=== PATIENT | male | born 1950 | race Hispanic/Latino ===

== ENCOUNTER → 2017-10-13 | Outpatient (CLI) | payer OTHER ==
[~2017-10-13] MED LIST: ASPI-1005 PO; CARV12.511 PO; CLOP75TA32 PO; EXEN10PE3 SQ; GLIP10TA9 PO; INSLAN SQ; ISOS60TA4 PO; LOSA25TA21 PO; PANT40TA25 PO; ROSU40 PO
== END | disposition home or self-care (01) ==
LOC: RAH 10:53
PROVIDERS: ATTEND Family Medicine
DX: N50.812 Left testicular pain (principal)
CPT/HCPCS: 76870

== ENCOUNTER → 2017-11-04 | Outpatient (CLI) | payer OTHER | END | disposition home or self-care (01) | LOC: RAH 12:26 | PROVIDERS: ATTEND Family Medicine | DX: K40.90 Unilateral inguinal hernia, without obstruction or gangrene, not specified as recurrent (principal) | CPT/HCPCS: 76882 ==

== ENCOUNTER 2018-09-05 06:12 | Observation (INO) | payer OTHER ==
[~2018-09-05] VITALS: Ht 167.6 cm; Wt 112.4 kg
[~2018-09-05 06:12] MED LIST changes: -LOSA25TA21 PO; +LOSA25TA41 PO
[2018-09-05] MEDS ORDERED: ASPIRIN 81MG TAB.CHEW ONE (06:20)
[2018-09-05] MEDS ORDERED: SODIUM CHLORIDE 0.9% 1000ML 1,000 ML IV ONE ×2 (06:45→11:43)
[2018-09-05] MEDS ORDERED: ONDANSETRON HCL 4 MG/2 ML VIAL ONE (06:45)
[2018-09-05] MEDS ORDERED: NITROGLYCERIN 0.4 MG SL TAB SL ONE (06:45)
[2018-09-05] MEDS ORDERED: MORPHINE SULFATE 4 MG/1ML SYG ONE (06:46)
[2018-09-05 06:47] LABS: BASOPHILS % (AUTO) 0.9 % (0.0-5.0); EOSINOPHILS % (AUTO) 1.2 % (0.0-8.0); LYMPHOCYTES % (AUTO) 23.7 % (21.0-51.0); MEAN CORPUSCULAR HEMOGLOBIN 30.8 pg (27.0-33.0); MEAN CORPUSCULAR HGB CONC 34.1 g/dL (32.0-36.0); MEAN CORPUSCULAR VOLUME 90.2 fL (79-99); MONOCYTES % (AUTO) 7.1 % (3.0-13.0); NEUTROPHILS % (AUTO) 67.1 % (40.0-77.0); PLATELET COUNT (AUTO) 210 K/uL (130-400); RED BLOOD CELL COUNT(AUTO) 4.33 MIL/uL (4.50-6.20); RED CELL DISTRIBUTION WIDTH 13.6 % (11.0-15.5); WHITE BLOOD COUNT (AUTO) 8.1 K/uL (4.8-10.8)
[2018-09-05 06:56] LABS: CREATININE 1.6 mg/dL (0.5-1.5); POTASSIUM 3.8 mmol/L (3.5-5.1)
[2018-09-05 07:09] LABS: ALBUMIN 3.7 g/dL (3.5-5.0); BILIRUBIN,TOTAL 0.7 mg/dL (0.2-1.0); TOTAL PROTEIN, SERUM 7.6 g/dL (6.0-8.3)
[2018-09-05 07:30] LABS: INR 0.94 (0.85-1.15); PROTHROMBIN TIME 9.9 SEC (9.6-11.6)
[2018-09-05] MEDS ORDERED: INSULIN HUMULIN R 100 UNIT/ML 3ML ONE ×3 (07:55→17:28)
[2018-09-05] MEDS ORDERED: ACETAMINOPHEN 325 MG TAB PO PRN (08:45)
[2018-09-05] MEDS ORDERED: POTASSIUM CHLORIDE 20 MEQ ERTAB PO PRN (08:45)
[2018-09-05] MEDS ORDERED: ONDANSETRON HCL 4 MG/2 ML VIAL IVP PRN (08:45)
[2018-09-05] MEDS ORDERED: LIDOCAINE HCL-MPF 1% 2ML VIAL IJ PRN (08:45)
[2018-09-05] MEDS ORDERED: HYDROCODONE/ACETAMINOPHEN 5/325 MG TAB PO PRN (08:45)
[2018-09-05] MEDS ORDERED: POTASSIUM CHLORIDE 20MEQ/100ML 100 ML IV PRN (08:45)
[2018-09-05] MEDS ORDERED: LABETALOL 20 MG/4 ML DISP.SYRIN IV PRN (08:45)
[2018-09-05] MEDS ORDERED: MORPHINE SULFATE 2 MG/ML 1ML SYG IVP PRN (08:45)
[2018-09-05] MEDS ORDERED: POTASSIUM CHLORIDE 10% ELIXIR 20 MEQ/15 ML UDCUP PO PRN (08:45)
[2018-09-05] MEDS ORDERED: ATORVASTATIN CALCIUM 40 MG TABLET PO SCH (09:00)
[2018-09-05] MEDS: ENOXAPARIN SODIUM 40 MG/0.4 ML SYRINGE SQ SCH (09:00)
[2018-09-05] MEDS ORDERED: ENOXAPARIN SODIUM 30 MG/0.3 ML SQ ONE (11:44)
[2018-09-05] MEDS ORDERED: ENOXAPARIN SODIUM 40 MG/0.4 ML SYRINGE SQ ONE (11:51)
[2018-09-05 13:25] LABS: CREATINE KINASE, TOTAL 52 U/L (21-232); MYOGLOBIN 58 ng/mL (10-92); TROPONIN I < 0.04 ng/mL (0.00-0.06)
[2018-09-05 20:10] VITALS: BP 158/80
--- NOTE | 2018-09-05 20:10 | NUR ---
ADMISSION NOTE: Received pt per stretcher. Alert and very responsive. Assessment done. VS checked and recorded. Oriented to room and use of call light. Policies and procedures explained. Verbalized understanding. Attached to Telemetry as ordered with SR. Plan of care initiated. Orders carried out. Observed and watched out for any unusualities. Cared for and needs provided. Distress / discomfort not noted.
[2018-09-05 21:14] LABS: CREATINE KINASE, TOTAL 49 U/L (21-232); MYOGLOBIN 60 ng/mL (10-92); TROPONIN I < 0.04 ng/mL (0.00-0.06)
[2018-09-05] MEDS ORDERED: GLUCAGON 1MG KIT 1 MG ML IM PRN (21:45)
[2018-09-05] MEDS ORDERED: DEXTROSE 50%-WATER 50 ML DISP.SYRIN IV PRN (21:45)
[2018-09-05] MEDS: SODIUM CHLORIDE 0.9% 1000ML 1,000 ML IV SCH (21:50)
[2018-09-05] MEDS: ISOSORBIDE MONO 60 MG TAB.SR PO SCH (22:37)
[2018-09-05] MEDS: ATORVASTATIN CALCIUM 40 MG TABLET PO SCH (22:38)
[2018-09-05] MEDS ORDERED: PIOG30TA70 PO (23:34)
[2018-09-05] MEDS ORDERED: GLIP10TA9 PO (23:34)
[2018-09-05] MEDS ORDERED: RANO500T2 PO (23:34)
[2018-09-05] MEDS ORDERED: CANA300T PO (23:34)
[2018-09-05] MEDS ORDERED: INSU300I3 SQ (23:41)
[2018-09-06 00:37] VITALS: BP 127/72
[2018-09-06 04:44] VITALS: BP 127/73
[2018-09-06 05:30] LABS: HEMATOCRIT 38.3 % (42-54); MEAN CORPUSCULAR HEMOGLOBIN 30.8 pg (27.0-33.0); MEAN CORPUSCULAR VOLUME 90.5 fL (79-99); NUCLEATED RED BLOOD CELLS 0.1 % (0.0-0.19); PLATELET COUNT (AUTO) 180 K/uL (130-400); RED BLOOD CELL COUNT(AUTO) 4.23 MIL/uL (4.50-6.20); RED CELL DISTRIBUTION WIDTH 13.6 % (11.0-15.5); WHITE BLOOD COUNT (AUTO) 7.7 K/uL (4.8-10.8)
[2018-09-06 05:40] LABS: CREATININE 1.6 mg/dL (0.5-1.5); POTASSIUM 3.5 mmol/L (3.5-5.1)
[2018-09-06] MEDS: INSULIN R PO SS1 SQ SCH ×4 (06:15→21:48)
[2018-09-06 07:00] VITALS: BP 147/88
--- NOTE | 2018-09-06 08:00 | NUR ---
AM SHIFT ASSESSMENT. DENIES ANY CHEST PAIN AT THIS TIME.
[2018-09-06] MEDS ORDERED: INSULIN GLARGINE 100 UNITS/ML 10 ML VIAL SQ SCH (09:00)
--- NOTE | 2018-09-06 09:00 | NUR ---
REPAIR ELECT[employer]IC [employer]OR ASSEMBLER CONSULT IN PLACE AND HAS BEEN CALLED. DR. VIDALES ON TODAY.
[2018-09-06] MEDS: CLOPIDOGREL BISULFATE 75 MG TAB PO SCH (10:10)
[2018-09-06] MEDS: ASPIRIN 81MG TAB.CHEW PO SCH (10:10)
[2018-09-06] MEDS: LOSARTAN 50 MG TABLET PO SCH (10:10)
[2018-09-06] MEDS: METOPROLOL TARTRATE 25 MG TAB PO SCH ×2 (10:10→21:50)
[2018-09-06] MEDS: ENOXAPARIN SODIUM 40 MG/0.4 ML SYRINGE SQ SCH (10:11)
[2018-09-06 11:00] VITALS: BP 130/75
[2018-09-06] MEDS: SODIUM CHLORIDE 0.9% 1000ML 1,000 ML IV SCH (11:10)
--- NOTE | 2018-09-06 12:48 | NUR ---
C/O OF CHEST PAIN, SR ON MONITOR. STATES A 5 ON SCALE OF 1 TO 10. MEDICATED AND 5 MINUTES LATER FELT BETTER. PLACED ON 2 LITERS OF O2. SLATE PICKER WITH BENCHMARK HAPPENED TO BE ROUNDING AND IN TO SEE PT. WILL ENTER ORDERS.
--- NOTE | 2018-09-06 14:00 | NUR ---
RD Notification Patient tolerating Heart Healthy, 75gm CC Diet with no report of GI distress and PO intake at 100%. Patient reports some nausea at breakfast time but has resolved. Patient reports some feelings of constipation. Patient LBM 09/05/18. Patient monitored labs: BUN 24, Cr 1.6, GFR 46, Glu 184. RD provided Diabetes and Nutrition Diet Education. RD to continue to monitor. Please notify RD as nutritional concerns arise. Thank you. Addendum: 09/06/18 at [address] RD Amended: Links added.
--- NOTE | 2018-09-06 14:07 | NUR ---
Diet Education RD offered and provided Diabetes and nutrition diet education for patient. Patient with no questions at time of teaching, however was agreeable and expressed desire for education. RD reviewed reference materials and handouts and patient verbalized understanding. Patient with no questions at this time. RD to follow-up. Please notify RD as nutritional concerns arise. Thank you. Addendum: 09/06/18 at [address] Amended: Links added.
[2018-09-06 16:00] VITALS: BP 132/75
--- NOTE | 2018-09-06 18:00 | NUR ---
NO FURTHER C/O OF CHEST DISCOMFORT, HAS BEEN SCHEDULED FOR A D ECHO AND STRESS TEST IN AM, WILL BE PLACED ON NPO STATUS AT [place] AND UNDERSTANDS.
[2018-09-06 20:00] VITALS: BP 126/64
[2018-09-06] MEDS: ATORVASTATIN CALCIUM 40 MG TABLET PO SCH (21:51)
[2018-09-06] MEDS: ISOSORBIDE MONO 60 MG TAB.SR PO SCH (21:51)
[2018-09-07] VITALS: BP 130/76
[2018-09-07 04:00] VITALS: BP 116/68
[2018-09-07] MEDS: SODIUM CHLORIDE 0.9% 1000ML 1,000 ML IV SCH ×2 (05:04→13:50)
[2018-09-07 06:03] LABS: B-TYPE NATRIURETIC PEPTIDE 34 pg/mL (0-100)
[2018-09-07 06:07] LABS: ALBUMIN 3.4 g/dL (3.5-5.0); BILIRUBIN,TOTAL 0.9 mg/dL (0.2-1.0); CREATININE 1.6 mg/dL (0.5-1.5); MAGNESIUM 1.8 mg/dL (1.80-2.40); PHOSPHORUS 4.1 mg/dL (2.5-4.9); POTASSIUM 4.1 mmol/L (3.5-5.1); THYROID STIMULATING HORMONE 3.36 uIU/mL (0.36-3.74); TOTAL PROTEIN, SERUM 7.1 g/dL (6.0-8.3)
[2018-09-07 06:30] LABS: HEMOGLOBIN A1C 9.3 % (4.0-6.0)
[2018-09-07] MEDS: INSULIN R PO SS1 SQ SCH ×4 (06:32→21:55)
[2018-09-07 07:04] LABS: BASOPHILS % (AUTO) 0.7 % (0.0-5.0); EOSINOPHILS % (AUTO) 1.3 % (0.0-8.0); HEMATOCRIT 37.8 % (42-54); LYMPHOCYTES % (AUTO) 25.6 % (21.0-51.0); MEAN CORPUSCULAR HEMOGLOBIN 30.6 pg (27.0-33.0); MEAN CORPUSCULAR HGB CONC 33.7 g/dL (32.0-36.0); MEAN CORPUSCULAR VOLUME 90.6 fL (79-99); MONOCYTES % (AUTO) 7.9 % (3.0-13.0); NEUTROPHILS % (AUTO) 64.5 % (40.0-77.0); NUCLEATED RED BLOOD CELLS 0.1 % (0.0-0.19); PLATELET COUNT (AUTO) 188 K/uL (130-400); RED BLOOD CELL COUNT(AUTO) 4.17 MIL/uL (4.50-6.20); RED CELL DISTRIBUTION WIDTH 13.8 % (11.0-15.5); WHITE BLOOD COUNT (AUTO) 8.4 K/uL (4.8-10.8)
[2018-09-07 08:25] VITALS: BP 123/71
[2018-09-07] MEDS: INSULIN GLARGINE 100 UNITS/ML 10 ML VIAL SQ SCH (09:00)
[2018-09-07] MEDS: LOSARTAN 50 MG TABLET PO SCH (09:00)
[2018-09-07] MEDS: METOPROLOL TARTRATE 25 MG TAB PO SCH ×2 (09:00→21:51)
[2018-09-07] MEDS: ENOXAPARIN SODIUM 40 MG/0.4 ML SYRINGE SQ SCH (10:19)
[2018-09-07] MEDS ORDERED: REGADENOSON 0.4 MG/5 ML PF SYG IVP SCH (12:45)
[2018-09-07] MEDS: CLOPIDOGREL BISULFATE 75 MG TAB PO SCH (13:30)
[2018-09-07] MEDS: ASPIRIN 81MG TAB.CHEW PO SCH (13:30)
[2018-09-07 16:00] VITALS: BP 130/72
--- NOTE | 2018-09-07 17:00 | NUR ---
CONSTANTINE FIELDS VISITED W PT AND SOUSE; AAOX3, ENG SPKG, IND OF ADLS, CPAPA AT HOME, PT STATES WAS EXTREMEMLY SHORT OF BREATH DURING THE STRESS TEST- STILL WAITING ON ECHO TO BE DONE; WILL PORBABLY NOT GO HOME TONIGHT; DCP [facility], CM TO FOLLOW UP, STILL IN OBS STATUS Addendum: 09/08/18 at 0832 by ARSALAN BENTON RN CM Amended: Links added.
[2018-09-07 20:00] VITALS: BP 134/69
[2018-09-07] MEDS: ATORVASTATIN CALCIUM 40 MG TABLET PO SCH (21:51)
[2018-09-07] MEDS: ISOSORBIDE MONO 60 MG TAB.SR PO SCH (21:52)
[2018-09-07 23:00] VITALS: BP 124/61
[2018-09-08] MEDS: SODIUM CHLORIDE 0.9% 1000ML 1,000 ML IV SCH (02:36)
[2018-09-08 03:47] VITALS: BP 104/66
[2018-09-08] MEDS: INSULIN R PO SS1 SQ SCH ×2 (06:44→12:13)
[2018-09-08 08:26] VITALS: BP 124/78
[2018-09-08] MEDS: INSULIN GLARGINE 100 UNITS/ML 10 ML VIAL SQ SCH (10:07)
[2018-09-08] MEDS: LOSARTAN 50 MG TABLET PO SCH (10:13)
[2018-09-08] MEDS: METOPROLOL TARTRATE 25 MG TAB PO SCH (10:13)
[2018-09-08] MEDS: ENOXAPARIN SODIUM 40 MG/0.4 ML SYRINGE SQ SCH (10:13)
[2018-09-08] MEDS: CLOPIDOGREL BISULFATE 75 MG TAB PO SCH (10:13)
[2018-09-08] MEDS: ASPIRIN 81MG TAB.CHEW PO SCH (10:13)
[2018-09-08] MEDS ORDERED: EZET10 PO (10:32)
--- NOTE | 2018-09-08 11:05 | NUR ---
CM MET W PT AND SPOUSE, EXPECTING DISCHARGE TODAY, FAMILY UPSET THAT ECHO HAS NOT BEEN DONE, RELAYED CONCENRNS TO DR. MACE, PT IS WELL KNOWN TO .
[2018-09-08 11:57] VITALS: BP 146/88
== END 2018-09-08 12:30 | disposition home or self-care (01) ==
LOC: EDH 06:12 → EDHIP 07:36 → 3AH 20:04
PROVIDERS: ADMIT Internal Medicine Critical Care Medicine; ATTEND Internal Medicine Critical Care Medicine
DX: I25.110 Atherosclerotic heart disease of native coronary artery with unstable angina pectoris (principal); I12.9 Hypertensive chronic kidney disease with stage 1 through stage 4 chronic kidney disease, or unspecified chronic kidney disease; N18.3 Chronic kidney disease, stage 3 (moderate); E11.22 Type 2 diabetes mellitus with diabetic chronic kidney disease; E11.65 Type 2 diabetes mellitus with hyperglycemia; E66.01 Morbid (severe) obesity due to excess calories; E78.5 Hyperlipidemia, unspecified; M17.10 Unilateral primary osteoarthritis, unspecified knee; Z72.0 Tobacco use; Z79.82 Long term (current) use of aspirin; Z79.899 Other long term (current) drug therapy; Z95.1 Presence of aortocoronary bypass graft; Z95.5 Presence of coronary angioplasty implant and graft
CPT/HCPCS: 36415 ×3; 71045 ×2; 78452; 80048; 80053 ×2; 80061; 82550 ×3; 82948 ×13; 83036; 83735; 83874 ×3; 83880; 84100; 84443; 84480; 84484 ×3; 85025 ×2; 85027; 85610; 85730; 93005 ×2; 93017; 96372 ×6; 96374; 99284; A9500 ×2; G0378 ×77; J1650 ×4; J1815 ×8; J2270; J2405; J2785; J7030 ×2; 99291

== ENCOUNTER → 2019-05-10 | Outpatient (CLI) | payer OTHER ==
[~2019-05-10] MED LIST changes: +CANA300T PO; +EZET10TA13 PO; +FURO20TA4 PO; +HYDR-4457 PO; +IBUP-2071 PO; +INSU300I3 SQ; +NITR0.4T50 SL; +PIOG30TA70 PO; +RANO500T2 PO; +TAMS-1 PO
== END | disposition home or self-care (01) ==
LOC: RAH 12:23
PROVIDERS: ATTEND Ophthalmology
DX: H47.10 Unspecified papilledema (principal)
CPT/HCPCS: 70450; 70480

== ENCOUNTER → 2019-05-22 | Outpatient (CLI) | payer OTHER ==
[~2019-05-22] MED LIST changes: -FURO20TA4 PO; -HYDR-4457 PO; -IBUP-2071 PO; -NITR0.4T50 SL; -TAMS-1 PO
== END | disposition home or self-care (01) ==
LOC: OIH 11:15
PROVIDERS: ATTEND Family Medicine
DX: Z01.818 Encounter for other preprocedural examination (principal); M47.815 Spondylosis without myelopathy or radiculopathy, thoracolumbar region
CPT/HCPCS: 71046

== ENCOUNTER 2019-06-02 15:00 | Observation (INO) | payer OTHER ==
[~2019-06-02] VITALS: Ht 167.6 cm; Wt 112.6 kg
[~2019-06-02 15:00] MED LIST changes: -EXEN10PE3 SQ; -INSLAN SQ
[2019-06-02 16:25] LABS: APPEARANCE,URINE Clear (CLEAR); BILIRUBIN,URINE Negative (NEGATIVE); COLOR,URINE Yellow (YELLOW); GLUCOSE, URINE (UA) >=1000 mg/dL (NEGATIVE); KETONES,URINE Negative (NEGATIVE); LEUKOCYTE ESTERASE ,URINE Negative (NEGATIVE); NITRATE,URINE Negative (NEGATIVE); OCCULT BLOOD,URINE Negative (NEGATIVE); PROTEIN,URINE Negative (NEGATIVE); UROBILINOGEN,URINE 0.2 mg/dL (0.2-1.0)
[2019-06-02 16:37] LABS: CREATININE 2.1 mg/dL (0.5-1.5); POTASSIUM 4.4 mmol/L (3.5-5.1)
[2019-06-02 16:53] LABS: BACTERIA,URINE None Seen /HPF (None Seen); MUCUS,URINE Few LPF (None Seen); RBC,URINE 0-1 /HPF (0-1); WBC,URINE 0-1 /HPF (0-1)
[2019-06-02] MEDS ORDERED: FURO20TA4 PO (17:07)
[2019-06-02] MEDS ORDERED: TAMS-1 PO (17:08)
[2019-06-02] MEDS ORDERED: NITR0.4T50 SL (17:09)
[2019-06-02] MEDS ORDERED: IBUP-2071 PO (17:12)
[2019-06-02 17:15] VITALS: BP 126/62
--- NOTE | 2019-06-02 19:30 | NUR ---
NURSING: REPORTED ABNORMAL BUN AND CREATININE LABS RESULTS TO DR. ESTEBAN, NO NEW ORDERS OK TO PROCEED.
[2019-06-05] VITALS (25 sets, daily range): BP systolic 110–155; BP diastolic 60–106
[2019-06-05] MEDS ORDERED: SODIUM CHLORIDE 0.9% 1000ML 1,000 ML IV ONE (11:31)
[2019-06-05] MEDS: CEFAZOLIN SODIUM 1 GM VIAL ONE ×2 (12:26→14:30)
[2019-06-05] MEDS ORDERED: SUCCINYLCHOLINE 200MG/10ML SYR ONE (12:34)
[2019-06-05] MEDS ORDERED: DEXAMETHASONE SOD PHOSPHATE 10MG/ML 1ML VIAL ONE (12:34)
[2019-06-05] MEDS ORDERED: LIDOCAINE PF 2% 5ML ABBOJECT ONE (12:34)
[2019-06-05] MEDS ORDERED: GLYCOPYRROLATE 1 MG/5 ML SYRINGE ONE (12:36)
[2019-06-05] MEDS ORDERED: MIDAZOLAM HCL 1 MG/ML 2ML VIAL ONE (12:36)
[2019-06-05] MEDS ORDERED: PROPOFOL 10 MG/ML 20ML VIAL IV ONE (12:37)
[2019-06-05] MEDS ORDERED: NEOSTIGMINE 5MG/5ML SYR IV ONE (12:37)
[2019-06-05] MEDS ORDERED: ONDANSETRON HCL 4 MG/2 ML VIAL ONE (12:37)
[2019-06-05] MEDS ORDERED: ROCURONIUM 10MG/1ML SYR 10 MG/ML ML ONE (12:38)
[2019-06-05] MEDS ORDERED: FENTANYL CITRATE PF 50 MCG/1 ML 2ML VIAL ONE ×2 (12:38→16:38)
[2019-06-05] MEDS ORDERED: ROPIVACAINE 0.5% 5MG/ML 30ML IJ ONE (12:41)
[2019-06-05] MEDS ORDERED: ACETAMINOPHEN EXTRA STRENGTH 500 MG TABLET ONE (13:10)
[2019-06-05] MEDS ORDERED: METOCLOPRAMIDE 10 MG/2 ML VIAL ONE (13:10)
[2019-06-05] MEDS ORDERED: CEFAZOLIN SODIUM 1 GM VIAL ONE ×2 (14:08→21:00)
[2019-06-05] MEDS: TRANEXAMIC ACID 1000MG/10ML ONE ×2 (14:40→18:04)
[2019-06-05] MEDS: SODIUM CHLORIDE 0.9% 1000ML 1,000 ML IV SCH ×2 (17:16→17:50)
[2019-06-05] MEDS ORDERED: ONDANSETRON HCL 4 MG/2 ML VIAL IVP PRN (17:30)
[2019-06-05] MEDS ORDERED: POTASSIUM CHLORIDE 10% ELIXIR 20 MEQ/15 ML UDCUP PO PRN (17:30)
[2019-06-05] MEDS: ACETAMINOPHEN EXTRA STRENGTH 500 MG TABLET PO SCH (17:30)
[2019-06-05] MEDS ORDERED: TRAMADOL HCL 50 MG TABLET PO PRN (17:30)
[2019-06-05] MEDS ORDERED: POTASSIUM CHLORIDE 20 MEQ ERTAB PO PRN (17:30)
[2019-06-05] MEDS ORDERED: CALCIUM CARBONATE 500 MG TABLET PO PRN (17:30)
[2019-06-05] MEDS ORDERED: DiphenhydrAMINE HCL 50 MG/ML VIAL IVP PRN (17:30)
[2019-06-05] MEDS ORDERED: LIDOCAINE HCL-MPF 1% 2ML VIAL IV PRN (17:30)
[2019-06-05] MEDS ORDERED: POTASSIUM CHLORIDE 20MEQ/100ML 100 ML IV PRN (17:30)
[2019-06-05] MEDS ORDERED: TEMAZEPAM 15 MG CAPSULE PO PRN (17:30)
[2019-06-05] MEDS ORDERED: FERROUS FUMARATE 324 MG TABLET PO PRN (17:30)
[2019-06-05] MEDS ORDERED: MEPERIDINE-PF 25 MG/ML SYG ONE (17:56)
[2019-06-05] MEDS ORDERED: HYDROMORPHONE 1 MG/1 ML AMP ONE (18:06)
[2019-06-05] MEDS ORDERED: NITROGLYCERIN 0.4 MG SL TAB SL SCH (19:00)
[2019-06-05] MEDS: CELECOXIB 200 MG CAP PO SCH (19:54)
[2019-06-05] MEDS: ISOSORBIDE MONO 60 MG TAB.SR PO SCH (19:54)
[2019-06-05] MEDS: ASPIRIN 81MG TAB.CHEW PO SCH (19:54)
[2019-06-05] MEDS: PREGABALIN 25 MG CAP PO SCH (19:54)
[2019-06-05] MEDS: RANOLAZINE 500 MG TAB.SR.12H PO SCH (19:55)
[2019-06-05] MEDS: CARVEDILOL 12.5 MG TABLET PO SCH (19:55)
[2019-06-05] MEDS: EZETIMIBE 10 MG TAB PO SCH (19:56)
[2019-06-05] MEDS: INSULIN HUMULIN R 100 UNIT/ML 3ML SQ SCH (21:00)
[2019-06-05] MEDS: CEFAZOLIN SODIUM 1 GM VIAL IVP SCH (22:59)
[2019-06-06] MEDS: ACETAMINOPHEN EXTRA STRENGTH 500 MG TABLET PO SCH ×3 (01:56→17:45)
[2019-06-06 04:01] VITALS: BP 122/58
[2019-06-06 04:32] LABS: MEAN CORPUSCULAR HEMOGLOBIN 31.4 pg (27.0-33.0); MEAN CORPUSCULAR HGB CONC 34.5 g/dL (32.0-36.0); MEAN CORPUSCULAR VOLUME 90.8 fL (79-99); PLATELET COUNT (AUTO) 169 K/uL (130-400); RED BLOOD CELL COUNT(AUTO) 3.63 MIL/uL (4.50-6.20); RED CELL DISTRIBUTION WIDTH 13.3 % (11.0-15.5); WHITE BLOOD COUNT (AUTO) 9.5 K/uL (4.8-10.8)
[2019-06-06 04:43] LABS: CREATININE 1.8 mg/dL (0.5-1.5); POTASSIUM 4.3 mmol/L (3.5-5.1)
--- NOTE | 2019-06-06 04:45 | NUR ---
PT DANGLED AT BEDSIDE.
[2019-06-06] MEDS: CEFAZOLIN SODIUM 1 GM VIAL IVP SCH (06:19)
[2019-06-06] MEDS: INSULIN HUMULIN R 100 UNIT/ML 3ML SQ SCH ×4 (06:20→21:00)
[2019-06-06] MEDS: INSULIN GLARGINE HUM REC ANLOG SQ SCH (07:30)
[2019-06-06 07:49] VITALS: BP 132/58
[2019-06-06] MEDS: OXYCODONE HCL 5 MG TAB PO PRN ×3 (08:14→22:25)
[2019-06-06] MEDS: HOME MEDICATION 1 EACH PO SCH (09:00)
[2019-06-06] MEDS: CARVEDILOL 12.5 MG TABLET PO SCH ×2 (09:00→20:24)
[2019-06-06] MEDS: ASPIRIN 81MG TAB.CHEW PO SCH ×2 (09:07→20:27)
[2019-06-06] MEDS: CLOPIDOGREL BISULFATE 75 MG TAB PO SCH (09:08)
[2019-06-06] MEDS: PANTOPRAZOLE SODIUM 40 MG TABLET.DR PO SCH (09:08)
[2019-06-06] MEDS: PREGABALIN 25 MG CAP PO SCH ×2 (09:09→20:23)
[2019-06-06] MEDS: TAMSULOSIN HCL 0.4 MG CAP.ER.24H PO SCH (09:09)
[2019-06-06] MEDS: CELECOXIB 200 MG CAP PO SCH ×2 (09:09→20:23)
[2019-06-06] MEDS: PIOGLITAZONE HCL 30 MG TAB PO SCH (09:09)
[2019-06-06] MEDS: FUROSEMIDE 20 MG TABLET PO SCH (09:10)
[2019-06-06] MEDS: GLIPIZIDE 5 MG TABLET PO SCH (09:10)
[2019-06-06] MEDS: RANOLAZINE 500 MG TAB.SR.12H PO SCH ×2 (09:10→20:23)
[2019-06-06] MEDS: POLYETHYLENE GLYCOL 3350 17 GM POWD.PACK PO SCH (09:12)
--- NOTE | 2019-06-06 09:41 | NUR ---
0949 had pt sign IM Letter.Faxed to [phone] and placed in chart under consent tab.
--- NOTE | 2019-06-06 09:48 | NUR ---
correction to previous note; had pt sigN [place] Letter.
--- NOTE | 2019-06-06 10:20 | NUR ---
DCP CM met with pt discussed dc plans. Pt is independent prior to surgery, lives at home w/spouse. Pt has a cane, and cpap. Denies any other equipments/services. Agreeable for short term placement rehab, JAMMIE signed for [facility]. Spouse able to assist with transportation and needs as necessary. DC plan to SNF. CM to cont to follow up. CM faxed order, clinicals, PT, and PASRR to [facility], confirmation received. Spoke to Mamta will come eval pt and sent req auth to insurance today, aware dcp today/once approved. Pt pending ins auth and acceptance. Primary nurse aware. CM to cont to follow up. Addendum: 06/06/19 at 1022 by GRAHAM MURPHY LVN CM Amended: Links added.
--- NOTE | 2019-06-06 10:47 | NUR ---
CM Note: [facility] pending ins auth CM spoke to Mamta Andujar, received order, clinicals, PT, and PASRR, already forwarded to ins this morning. Pt pending ins auth at this time. Primary nurse aware. CM to cont to follow up.
[2019-06-06 11:31] VITALS: BP 109/55
[2019-06-06] MEDS: SODIUM CHLORIDE 0.9% 1000ML 1,000 ML IV SCH (12:02)
--- NOTE | 2019-06-06 15:52 | NUR ---
CM Note: [facility] pending ins auth CM spoke to Mamta w/[facility], pt still pending ins auth at this time. CM made contact w/Antonio Neo, aware dcp for today. Pt still pending ins auth for [facility], pending response. Primary nurse aware. CM to cont to follow up.
[2019-06-06 16:00] VITALS: BP 133/65
[2019-06-06 19:39] VITALS: BP 111/52
[2019-06-06] MEDS: ISOSORBIDE MONO 60 MG TAB.SR PO SCH (20:23)
[2019-06-06] MEDS: EZETIMIBE 10 MG TAB PO SCH (20:23)
[2019-06-06 23:36] VITALS: BP 113/58
[2019-06-07] MEDS: ACETAMINOPHEN EXTRA STRENGTH 500 MG TABLET PO SCH ×2 (01:30→09:47)
[2019-06-07] MEDS: OXYCODONE HCL 5 MG TAB PO PRN ×4 (02:40→16:00)
[2019-06-07 03:30] VITALS: BP 102/50
[2019-06-07] MEDS: INSULIN HUMULIN R 100 UNIT/ML 3ML SQ SCH ×4 (06:24→20:01)
[2019-06-07] MEDS: INSULIN GLARGINE HUM REC ANLOG SQ SCH (06:24)
[2019-06-07 08:09] VITALS: BP 135/69
[2019-06-07] MEDS: HOME MEDICATION 1 EACH PO SCH (09:00)
[2019-06-07] MEDS: CELECOXIB 200 MG CAP PO SCH ×2 (09:32→19:54)
[2019-06-07] MEDS: TAMSULOSIN HCL 0.4 MG CAP.ER.24H PO SCH (09:33)
[2019-06-07] MEDS: CARVEDILOL 12.5 MG TABLET PO SCH ×2 (09:33→19:55)
[2019-06-07] MEDS: FUROSEMIDE 20 MG TABLET PO SCH (09:33)
[2019-06-07] MEDS: PANTOPRAZOLE SODIUM 40 MG TABLET.DR PO SCH (09:34)
[2019-06-07] MEDS: CLOPIDOGREL BISULFATE 75 MG TAB PO SCH (09:34)
[2019-06-07] MEDS: GLIPIZIDE 5 MG TABLET PO SCH (09:34)
[2019-06-07] MEDS: PIOGLITAZONE HCL 30 MG TAB PO SCH (09:35)
[2019-06-07] MEDS: POLYETHYLENE GLYCOL 3350 17 GM POWD.PACK PO SCH (09:35)
[2019-06-07] MEDS: RANOLAZINE 500 MG TAB.SR.12H PO SCH ×2 (09:35→19:54)
[2019-06-07] MEDS: PREGABALIN 25 MG CAP PO SCH ×2 (09:35→19:55)
[2019-06-07 11:29] VITALS: BP 131/65
[2019-06-07 11:49] VITALS: BP 131/65
[2019-06-07] MEDS: ASPIRIN 81MG TAB.CHEW PO SCH ×2 (12:14→19:55)
--- NOTE | 2019-06-07 14:31 | NUR ---
CM Note: [facility] pending ins auth CM spoke to Mamta gutierrez/[facility], pt still pending ins auth. Kusum and Keturah w/Antonio aware dcp for today, pending ins auth, currently still working on auth, CM Director Diya sousa. Primary nurse aware. CM to cont to follow up.
--- NOTE | 2019-06-07 15:45 | NUR ---
CM Note: [facility] ins auth CM spoke to Mamta Andujar, pt has ins auth, safe to transfer via [address] van. Primary nurse aware. CM to cont to follow up.
[2019-06-07 15:52] VITALS: BP 118/64
[2019-06-07] MEDS ORDERED: HYDR-4457 PO (17:25)
[2019-06-07] MEDS ORDERED: ASPI-1005 PO (17:25)
--- NOTE | 2019-06-07 19:30 | NUR ---
report has been called and faxed to [facility]cee [facility]; Patient and stated understanding of all discharge instructions instructions for after care for a knee replacement including, wound care, follow up appointment, aspirin therapy, wbat as tolerated activity using a standard walker, signs and symptoms of infection and or other concerns to report to md. iv access removed, kaycee to sweet pickle maker with there van service.
[2019-06-07] MEDS: EZETIMIBE 10 MG TAB PO SCH (19:54)
[2019-06-07] MEDS: ISOSORBIDE MONO 60 MG TAB.SR PO SCH (19:54)
[2019-06-07 20:00] VITALS: BP 121/58
--- NOTE | 2019-06-07 20:40 | NUR ---
DISCHARGE DISCHARGED TO [facility] VIA W/C WITH [facility]OURNEYMAN MOLDER AND AT BEDSIDE
[2019-06-08] MEDS ORDERED: BISACODYL 10 MG SUPP.RECT RC PRN (17:30)
== END 2019-06-07 20:40 ==
LOC: EDSTATUS 15:00 → DAHIP 06-05 09:12 → 4AH 06-05 18:26
PROVIDERS: ADMIT Orthopaedic Surgery; ATTEND Orthopaedic Surgery
DX: M17.12 Unilateral primary osteoarthritis, left knee (principal); I25.10 Atherosclerotic heart disease of native coronary artery without angina pectoris; E11.9 Type 2 diabetes mellitus without complications; I10 Essential (primary) hypertension; F32.9 Major depressive disorder, single episode, unspecified; E78.5 Hyperlipidemia, unspecified; E66.9 Obesity, unspecified; Z87.891 Personal history of nicotine dependence; Z95.1 Presence of aortocoronary bypass graft; Z79.82 Long term (current) use of aspirin; Z79.899 Other long term (current) drug therapy; Z68.41 Body mass index [BMI] 40.0-44.9, adult
CPT/HCPCS: 27447; 36415 ×2; 80048 ×2; 81001; 82948 ×11; 85027; 96372 ×2; 96374; 96376; 97039; 97116 ×3; 97161; 97530 ×4; A4215; A4221; A4222; A4223; A4600; A4649 ×5; A4663; A4930 ×3; A5120; A9272; C1763; C1776; G0168; G0378 ×54; G8979; G8980; G8981; G8982; G8983; J0330; J0690 ×4; J1100; J1170; J1815 ×6; J2001; J2175; J2250; J2405; J2704; J2710; J2765; J2795; J3010 ×2; J3490 ×2; J7030; J7120

== ENCOUNTER 2019-09-02 21:36 | Emergency (ER) | payer OTHER ==
[~2019-09-02 21:36] MED LIST changes: +FURO20TA4 PO; +HYDR-4457 PO; +NITR0.4T50 SL; +TAMS-1 PO
[2019-09-02] MEDS ORDERED: IBUPROFEN 400 MG TABLET ONE (22:27)
[2019-09-02] MEDS ORDERED: FAMOTIDINE 20MG TAB 20 MG TAB ONE (22:27)
[2019-09-02 22:31] LABS: BASOPHILS % (AUTO) 0.3 % (0.0-5.0); EOSINOPHILS % (AUTO) 0.4 % (0.0-8.0); HEMATOCRIT 36.5 % (42-54); LYMPHOCYTES % (AUTO) 4.4 % (21.0-51.0); MEAN CORPUSCULAR HEMOGLOBIN 28.9 pg (27.0-33.0); MEAN CORPUSCULAR HGB CONC 32.9 g/dL (32.0-36.0); MONOCYTES % (AUTO) 6.4 % (3.0-13.0); NEUTROPHILS % (AUTO) 88.2 % (40.0-77.0); PLATELET COUNT (AUTO) 209 K/uL (130-400); RED BLOOD CELL COUNT(AUTO) 4.15 MIL/uL (4.50-6.20); RED CELL DISTRIBUTION WIDTH 13.2 % (11.0-15.5); WHITE BLOOD COUNT (AUTO) 13.9 K/uL (4.8-10.8)
[2019-09-02 22:43] LABS: PARTIAL THROMBOPLASTIN TIME 25.2 SEC (26.3-35.5); PROTHROMBIN TIME 10.5 SEC (9.6-11.6)
[2019-09-02 22:46] LABS: CARBON DIOXIDE 25 mmol/L (21-32); CHLORIDE 101 mmol/L (101-111); CREATININE 1.8 mg/dL (0.5-1.5); GLOMERULAR FILTR. RATE CALC 40 mL/min (>60); GLUCOSE,RANDOM 350 mg/dL (70-105); POTASSIUM 3.8 mmol/L (3.5-5.1); SODIUM SERUM 136 mmol/L (136-145); UREA NITROGEN, BLOOD 28 mg/dL (7-18)
[2019-09-02 22:56] LABS: ALANINE AMINOTRANSFERASE 18 U/L (12-78); ALBUMIN 3.6 g/dL (3.5-5.0); ASPARTATE AMINOTRANSFERASE 14 U/L (10-37); BILIRUBIN,TOTAL 0.8 mg/dL (0.2-1.0); CREATINE KINASE, TOTAL 108 U/L (21-232); MYOGLOBIN 118 ng/mL (10-92); TOTAL PROTEIN, SERUM 7.6 g/dL (6.0-8.3); TROPONIN I < 0.04 ng/mL (0.00-0.06)
[2019-09-02 23:32] LABS: APPEARANCE,URINE Clear (CLEAR); BILIRUBIN,URINE Negative (NEGATIVE); COLOR,URINE Yellow (YELLOW); GLUCOSE, URINE (UA) >=1000 mg/dL (NEGATIVE); KETONES,URINE Negative (NEGATIVE); LEUKOCYTE ESTERASE ,URINE Negative (NEGATIVE); NITRATE,URINE Negative (NEGATIVE); OCCULT BLOOD,URINE Negative (NEGATIVE); PROTEIN,URINE Negative (NEGATIVE); UROBILINOGEN,URINE 0.2 mg/dL (0.2-1.0)
[2019-09-02 23:47] LABS: BACTERIA,URINE Few /HPF (None Seen); RBC,URINE 0-1 /HPF (0-1); WBC,URINE 0-1 /HPF (0-1)
[2019-09-03] MEDS ORDERED: IBUP-2077 PO (20:08)
[2019-09-03] MEDS ORDERED: TYL3B PO (20:08)
== END 2019-09-03 00:01 | disposition home or self-care (01) ==
LOC: EDH 21:36
DX: E11.65 Type 2 diabetes mellitus with hyperglycemia (principal); R50.9 Fever, unspecified; I25.2 Old myocardial infarction; I10 Essential (primary) hypertension; I25.10 Atherosclerotic heart disease of native coronary artery without angina pectoris; Z87.891 Personal history of nicotine dependence
CPT/HCPCS: 36415; 71045; 80053; 81001; 82550; 83605; 83874; 83880; 84145; 84484; 85025; 85610; 85730; 87040; 87077; 87088; 87186; 87804; 93005

== ENCOUNTER → 2019-09-21 | Outpatient (CLI) | payer OTHER ==
[~2019-09-21] MED LIST changes: -HYDR-4457 PO; +IBUP-2077 PO; +TYL3B PO
== END | disposition home or self-care (01) ==
LOC: OIH 15:08
PROVIDERS: ATTEND Family Medicine
DX: M17.11 Unilateral primary osteoarthritis, right knee (principal)
CPT/HCPCS: 73562

== ENCOUNTER → 2019-10-19 | Outpatient (CLI) | payer OTHER ==
[~2019-10-19] MED LIST changes: +ASCO-477 PO; +OXYB10TA30 PO; -PANT40TA25 PO; +PANT40TA54 PO; +VIT1TABL66 PO
== END | disposition home or self-care (01) ==
LOC: SHCH 08:37
PROVIDERS: ATTEND Internal Medicine Cardiovascular Disease
DX: I87.2 Venous insufficiency (chronic) (peripheral) (principal); K21.9 Gastro-esophageal reflux disease without esophagitis
CPT/HCPCS: 93970

== ENCOUNTER 2019-10-21 11:38 | Emergency (ER) | payer OTHER ==
[~2019-10-21 11:38] MED LIST changes: -ASCO-477 PO; -OXYB10TA30 PO; +PANT40TA25 PO; -PANT40TA54 PO; -VIT1TABL66 PO
[2019-10-21 13:21] LABS: CREATININE 1.6 mg/dL (0.5-1.5); POTASSIUM 4.2 mmol/L (3.5-5.1)
[2019-10-21 13:25] LABS: ALBUMIN 3.5 g/dL (3.5-5.0); BILIRUBIN,TOTAL 0.7 mg/dL (0.2-1.0); TOTAL PROTEIN, SERUM 7.3 g/dL (6.0-8.3)
[2019-10-21 13:36] LABS: B-TYPE NATRIURETIC PEPTIDE 93 pg/mL (0-100)
[2019-10-21 13:39] LABS: BASOPHILS % (AUTO) 0.7 % (0.0-5.0); EOSINOPHILS % (AUTO) 1.9 % (0.0-8.0); HEMATOCRIT 37.7 % (42-54); LYMPHOCYTES % (AUTO) 21.3 % (21.0-51.0); MEAN CORPUSCULAR HEMOGLOBIN 29.2 pg (27.0-33.0); MEAN CORPUSCULAR HGB CONC 32.9 g/dL (32.0-36.0); MEAN CORPUSCULAR VOLUME 88.7 fL (79-99); MONOCYTES % (AUTO) 6.2 % (3.0-13.0); NEUTROPHILS % (AUTO) 69.6 % (40.0-77.0); PLATELET COUNT (AUTO) 223 K/uL (130-400); RED BLOOD CELL COUNT(AUTO) 4.25 MIL/uL (4.50-6.20); RED CELL DISTRIBUTION WIDTH 13.7 % (11.0-15.5); WHITE BLOOD COUNT (AUTO) 6.9 K/uL (4.8-10.8)
== END 2019-10-21 14:01 | disposition home or self-care (01) ==
LOC: EDH 11:38
DX: J20.9 Acute bronchitis, unspecified (principal); E11.9 Type 2 diabetes mellitus without complications; I10 Essential (primary) hypertension; I25.2 Old myocardial infarction; I25.10 Atherosclerotic heart disease of native coronary artery without angina pectoris; Z87.891 Personal history of nicotine dependence
CPT/HCPCS: 36415; 71045; 80053; 83880; 84484; 85025; 87804; 93005

== ENCOUNTER → 2019-11-29 | Outpatient (CLI) | payer OTHER | END | disposition home or self-care (01) | LOC: OIH 11:20 | PROVIDERS: ATTEND Family Medicine | DX: M19.011 Primary osteoarthritis, right shoulder (principal); M25.411 Effusion, right shoulder | CPT/HCPCS: 73030 ==

== ENCOUNTER 2019-12-10 12:06 | Emergency (ER) | payer OTHER ==
[2019-12-10] MEDS ORDERED: ORPHENADRINE CITRATE 30 MG/ML ML ONE (16:16)
[2019-12-10] MEDS ORDERED: DEXAMETHASONE SOD PHOSPHATE 10MG/ML 1ML VIAL ONE (16:16)
[2019-12-10] MEDS ORDERED: KETOROLAC TROMETHAMINE 15MG/ML ONE (16:16)
== END 2019-12-10 17:06 | disposition home or self-care (01) ==
LOC: EDH 12:06
DX: M54.5 Low back pain (principal); K80.20 Calculus of gallbladder without cholecystitis without obstruction; I10 Essential (primary) hypertension; I25.2 Old myocardial infarction; E11.9 Type 2 diabetes mellitus without complications; I25.10 Atherosclerotic heart disease of native coronary artery without angina pectoris; Z95.1 Presence of aortocoronary bypass graft; Z87.891 Personal history of nicotine dependence
CPT/HCPCS: 36415; 74176; 80053; 81003; 85025; 96374; 96375; 99284; J1100; J1885; J2360

== ENCOUNTER 2020-04-01 03:02 | Observation (INO) | payer OTHER ==
[~2020-04-01] VITALS: Ht 167.6 cm; Wt 116.2 kg
[~2020-04-01 03:02] MED LIST changes: -PANT40TA25 PO; +PANT40TA54 PO
[2020-04-01] MEDS ORDERED: ASPIRIN 325 MG TABLET ONE (03:06)
[2020-04-01 03:22] LABS: BASOPHILS % (AUTO) 0.7 % (0.0-5.0); EOSINOPHILS % (AUTO) 2.3 % (0.0-8.0); HEMATOCRIT 36.5 % (42-54); LYMPHOCYTES % (AUTO) 33.8 % (21.0-51.0); MEAN CORPUSCULAR HEMOGLOBIN 30.5 pg (27.0-33.0); MEAN CORPUSCULAR VOLUME 89.7 fL (79-99); MONOCYTES % (AUTO) 6.7 % (3.0-13.0); NEUTROPHILS % (AUTO) 56.2 % (40.0-77.0); PLATELET COUNT (AUTO) 192 K/uL (130-400); RED BLOOD CELL COUNT(AUTO) 4.07 MIL/uL (4.50-6.20); RED CELL DISTRIBUTION WIDTH 13.2 % (11.0-15.5); WHITE BLOOD COUNT (AUTO) 8.7 K/uL (4.8-10.8)
[2020-04-01 03:34] LABS: CREATININE 2.1 mg/dL (0.5-1.5); POTASSIUM 3.2 mmol/L (3.5-5.1)
[2020-04-01 03:38] LABS: ALBUMIN 3.6 g/dL (3.5-5.0); BILIRUBIN,TOTAL 0.6 mg/dL (0.2-1.0); TOTAL PROTEIN, SERUM 7.3 g/dL (6.0-8.3)
[2020-04-01 03:41] LABS: INR 0.96 (0.85-1.15); PARTIAL THROMBOPLASTIN TIME 25.2 SEC (26.3-35.5); PROTHROMBIN TIME 10.4 SEC (9.6-11.6)
[2020-04-01] MEDS ORDERED: NITROGLYCERIN 1GM/1 INCH PACKET TD ONE (03:53)
[2020-04-01 09:30] VITALS: BP 128/67
[2020-04-01] MEDS ORDERED: REGADENOSON 0.4 MG/5 ML PF SYG IVP SCH (09:30)
--- NOTE | 2020-04-01 10:49 | NUR ---
spoke with lexiscan testing dept. , pt was eating breakfast and coffee at the er. reschedule tomorrow for lexiscan and npo midnight.
[2020-04-01 11:00] VITALS: BP 137/71
--- NOTE | 2020-04-01 12:14 | NUR ---
CONTACT AND SPOKE WITH DR. YOUNGBLOOD. PT ON LEXISCAN SCHEDULE TOMORROW MORNING NPO POST MIDNIGHT. ORDERED 1800 ADA DIET. CONTACT AND SPOKE DIETARY PT NEEDS LUNCH TRAY.
[2020-04-01 16:00] VITALS: BP 125/65
--- NOTE | 2020-04-01 19:52 | NUR ---
given handoff to [facility] nurse for continuity of care, pt for soledad in am, npo post midnight.
[2020-04-01 20:04] VITALS: BP 133/58
[2020-04-01] MEDS ORDERED: ASCO-477 PO (20:10)
[2020-04-01] MEDS ORDERED: VIT1TABL66 PO (20:10)
[2020-04-01] MEDS ORDERED: OXYB10TA30 PO (20:10)
--- NOTE | 2020-04-01 20:14 | NUR ---
pt arrived in unit, shift assessment done, lung hunt clear , abdomen soft non tender, good capillary refill, + pedal and popliteal pulse, pt given lunch and dinner, npo post midnight, medication reconcilation done, safety maintained, education given.
[2020-04-01 22:38] VITALS: BP 133/58
[2020-04-02] VITALS (7 sets, daily range): BP systolic 106–133; BP diastolic 48–78
[2020-04-02] MEDS ORDERED: DEXTROSE 50%-WATER 50 ML DISP.SYRIN IV PRN (01:00)
[2020-04-02] MEDS: NITROGLYCERIN 1GM/1 INCH PACKET TD SCH ×4 (01:00→20:46)
[2020-04-02] MEDS ORDERED: GLUCAGON 1MG KIT 1 MG ML IM PRN (01:00)
[2020-04-02] MEDS: INSULIN R PO SS2 SQ SCH ×4 (05:49→20:37)
--- NOTE | 2020-04-02 08:51 | NUR ---
REC D ORDER FORM DR. WAKEFIELD THIS MORNING,CM TO FOLLOW UP
[2020-04-02] MEDS: ASPIRIN 325MG EC TAB 325 MG TABLET.DR PO SCH (09:00)
[2020-04-02] MEDS: METOPROLOL TARTRATE 50 MG TAB PO SCH ×2 (09:00→20:45)
[2020-04-02] MEDS ORDERED: REGADENOSON 0.4 MG/5 ML PF SYG IVP SCH (12:15)
--- NOTE | 2020-04-02 14:29 | NUR ---
[id number] patient signed HURT Letter, I faxed HURT Letter to [phone] and placed in chart under consent tab.
--- NOTE | 2020-04-02 15:15 | NUR ---
contact and spoke with , pt bp 180 while doing lexiscan, ordered trandate 10mg iv once, clonidine .2 mg po q6 prn for systolic bp 160 and greater. torb and confirmed. dr. patterson direct [phone].
[2020-04-02] MEDS ORDERED: LABETALOL 20 MG/4 ML DISP.SYRIN IV ONE (15:25)
[2020-04-02] MEDS ORDERED: CLONIDINE HCL 0.2 MG TABLET PO PRN (15:30)
[2020-04-02] MEDS ORDERED: LABETALOL 20 MG/4 ML DISP.SYRIN IV SCH (15:30)
--- NOTE | 2020-04-02 15:40 | NUR ---
CONTACT AND SPOKE WITH CHRISTIE FROM RADIOLOGY DEPARTMENT , TOLD ME PT BP WHILE DOING THE PROCEDURE WAS 260/110, ABLE TO SPOKE WITH , GIVEN HIM ONETIME LABETALOL BP 127/67, HR 68. THEYRE GOING TO PICK HIM UP AND CONTINUE LEXISCAN.
--- NOTE | 2020-04-02 20:17 | NUR ---
given report to leeanne shine for continuity of care, pt just finished his lexiscan. waiting for result. for observation per .
[2020-04-03] VITALS: BP 109/71
[2020-04-03 04:00] VITALS: BP 108/66
[2020-04-03] MEDS: NITROGLYCERIN 1GM/1 INCH PACKET TD SCH (05:31)
[2020-04-03] MEDS: INSULIN R PO SS2 SQ SCH (06:06)
[2020-04-03 08:00] VITALS: BP 118/64
--- NOTE | 2020-04-03 08:31 | NUR ---
contact and spoke with , pt soledad is ok. ok to discharge, continue home medication. see pcp in one week.
[2020-04-03] MEDS: METOPROLOL TARTRATE 50 MG TAB PO SCH (10:03)
[2020-04-03] MEDS: ASPIRIN 325MG EC TAB 325 MG TABLET.DR PO SCH (10:03)
--- NOTE | 2020-04-03 11:26 | NUR ---
pt dc , removed iv, tolerated well, pickle pumper by . safety maintained.
--- NOTE | 2020-04-03 12:31 | NUR ---
DIAMOND NOTE PATIENT DISCHARGED HOME BEFORE I COULD SPEAK TO HIM IN ROOM. NO NEEDS VERBALIZED BY NURSING STAFF. Addendum: 04/03/20 at 1232 by GAUTAM CURRY RN CM Amended: Links added.
== END 2020-04-03 11:10 | disposition home or self-care (01) ==
LOC: EDH 03:02 → EDHIP 05:15 → INTOOBSV 05:15 → 4BH 09:30
PROVIDERS: ADMIT Family Medicine; ATTEND Family Medicine
DX: I25.119 Atherosclerotic heart disease of native coronary artery with unspecified angina pectoris (principal); I10 Essential (primary) hypertension; E78.5 Hyperlipidemia, unspecified; E66.01 Morbid (severe) obesity due to excess calories; Z96.659 Presence of unspecified artificial knee joint
CPT/HCPCS: 36415; 71045; 78452; 80053; 82550; 82948 ×8; 83880; 84484 ×3; 85025; 85610; 85730; 93005; 93017; 96374; 99285; A9500 ×2; G0378 ×20; J2785 ×2; A9505

== ENCOUNTER → 2020-04-15 | Outpatient (CLI) | payer OTHER ==
[~2020-04-15] MED LIST changes: +ASCO-477 PO; +OXYB10TA30 PO; +VIT1TABL66 PO
== END | disposition home or self-care (01) ==
LOC: OIH 13:48
PROVIDERS: ATTEND Family Medicine
DX: M47.812 Spondylosis without myelopathy or radiculopathy, cervical region (principal); M48.02 Spinal stenosis, cervical region; M25.78 Osteophyte, vertebrae
CPT/HCPCS: 72040

== ENCOUNTER 2020-06-05 09:00 | Observation (INO) | payer OTHER ==
[~2020-06-05] VITALS: Ht 167.6 cm; Wt 111.0 kg
[~2020-06-05 09:00] MED LIST changes: -ASCO-477 PO; -ASPI-1005 PO; -CARV12.511 PO; -CLOP75TA32 PO; -IBUP-2077 PO; -TYL3B PO; -VIT1TABL66 PO
[2020-06-05 12:00] LABS: BASOPHILS % (AUTO) 0.4 % (0.0-5.0); EOSINOPHILS % (AUTO) 0.9 % (0.0-8.0); HEMATOCRIT 42.9 % (42-54); LYMPHOCYTES % (AUTO) 21.3 % (21.0-51.0); MEAN CORPUSCULAR HEMOGLOBIN 30.2 pg (27.0-33.0); MEAN CORPUSCULAR HGB CONC 32.6 g/dL (32.0-36.0); MEAN CORPUSCULAR VOLUME 92.7 fL (79-99); MONOCYTES % (AUTO) 6.9 % (3.0-13.0); NEUTROPHILS % (AUTO) 69.9 % (40.0-77.0); PLATELET COUNT (AUTO) 217 K/uL (130-400); RED BLOOD CELL COUNT(AUTO) 4.63 MIL/uL (4.50-6.20); RED CELL DISTRIBUTION WIDTH 13.4 % (11.0-15.5); WHITE BLOOD COUNT (AUTO) 8.1 K/uL (4.8-10.8)
[2020-06-05 12:07] LABS: CREATININE 2.1 mg/dL (0.5-1.5); POTASSIUM 4.2 mmol/L (3.5-5.1)
[2020-06-05 12:37] LABS: INR 0.95 (0.85-1.15); PROTHROMBIN TIME 10.3 SEC (9.6-11.6)
[2020-06-05 12:57] LABS: APPEARANCE,URINE Clear (CLEAR); BILIRUBIN,URINE Negative (NEGATIVE); COLOR,URINE Yellow (YELLOW); GLUCOSE, URINE (UA) >=1000 mg/dL (NEGATIVE); KETONES,URINE Negative (NEGATIVE); LEUKOCYTE ESTERASE ,URINE Negative (NEGATIVE); NITRATE,URINE Negative (NEGATIVE); OCCULT BLOOD,URINE Negative (NEGATIVE); PROTEIN,URINE Negative (NEGATIVE); UROBILINOGEN,URINE 0.2 mg/dL (0.2-1.0)
[2020-06-05 13:19] LABS: BACTERIA,URINE Rare /HPF (None Seen); RBC,URINE None Seen /HPF (0-1); WBC,URINE None Seen /HPF (0-1)
[2020-06-05 13:20] LABS: SQUAMOUS EPITHELIAL CELL,UR 0-2 /HPF (0-2)
[2020-06-11 10:33] VITALS: BP 155/61
[2020-06-12] VITALS (23 sets, daily range): BP systolic 90–131; BP diastolic 43–68
[2020-06-12] MEDS: CEFAZOLIN SODIUM 1 GM VIAL IVP SCH ×3 (05:00→16:52)
[2020-06-12] MEDS ORDERED: SODIUM CHLORIDE 0.9% 1000ML 1,000 ML IV ONE (06:45)
[2020-06-12] MEDS ORDERED: CEFAZOLIN SODIUM 1 GM VIAL ONE (07:04)
[2020-06-12] MEDS ORDERED: LIDOCAINE PF 2% 5ML ABBOJECT ONE (07:31)
[2020-06-12] MEDS ORDERED: SUCCINYLCHOLINE CHLORIDE 20 MG/ML 10 ML VIAL ONE (07:31)
[2020-06-12] MEDS ORDERED: PROPOFOL 10 MG/ML 20ML VIAL IV ONE (07:33)
[2020-06-12] MEDS ORDERED: FENTANYL CITRATE PF 50 MCG/1 ML 2ML VIAL ONE (07:33)
[2020-06-12] MEDS ORDERED: ROCURONIUM 10MG/1ML SYR 10 MG/ML ML ONE (07:33)
[2020-06-12] MEDS ORDERED: ROPIVACAINE 0.5% 5MG/ML 30ML IJ ONE (07:36)
[2020-06-12] MEDS ORDERED: MIDAZOLAM HCL 1 MG/ML 2ML VIAL ONE (08:18)
[2020-06-12] MEDS ORDERED: TRANEXAMIC ACID 1000MG/10ML ONE ×2 (08:20→11:05)
[2020-06-12] MEDS ORDERED: EPHEDRINE SULFATE 50 MG/ML AMPULE ONE (08:56)
[2020-06-12] MEDS ORDERED: GLYCOPYRROLATE 1 MG/5 ML SYRINGE ONE (10:20)
[2020-06-12] MEDS ORDERED: NEOSTIGMINE 5MG/5ML SYR IV ONE (10:20)
[2020-06-12] MEDS ORDERED: CALCIUM CARBONATE 500 MG TABLET PO PRN (10:30)
[2020-06-12] MEDS ORDERED: POTASSIUM CHLORIDE 20 MEQ ERTAB PO PRN (10:30)
[2020-06-12] MEDS ORDERED: ONDANSETRON HCL 4 MG/2 ML VIAL IVP PRN (10:30)
[2020-06-12] MEDS ORDERED: DiphenhydrAMINE HCL 50 MG/ML VIAL IVP PRN (10:30)
[2020-06-12] MEDS ORDERED: LIDOCAINE HCL-MPF 1% 2ML VIAL IV PRN (10:30)
[2020-06-12] MEDS: ACETAMINOPHEN EXTRA STRENGTH 500 MG TABLET PO SCH ×2 (10:30→18:42)
[2020-06-12] MEDS ORDERED: OXYCODONE HCL 5 MG TAB PO PRN (10:30)
[2020-06-12] MEDS ORDERED: POTASSIUM CHLORIDE 10% ELIXIR 20 MEQ/15 ML UDCUP PO PRN (10:30)
[2020-06-12] MEDS ORDERED: FERROUS FUMARATE 324 MG TABLET PO PRN (10:30)
[2020-06-12] MEDS ORDERED: POTASSIUM CHLORIDE 20MEQ/100ML 100 ML IV PRN (10:30)
[2020-06-12] MEDS ORDERED: MEPERIDINE-PF 25 MG/ML SYG ONE (11:25)
[2020-06-12] MEDS: INSULIN HUMULIN R 100 UNIT/ML 3ML SQ SCH ×3 (11:30→21:00)
[2020-06-12] MEDS: SODIUM CHLORIDE 0.9% 1000ML 1,000 ML IV SCH ×2 (12:33→20:51)
[2020-06-12] MEDS ORDERED: CANAGLIFLOZIN 300 MG PO SCH (13:00)
[2020-06-12] MEDS ORDERED: NITROGLYCERIN 0.4 MG SL TAB SL SCH (13:00)
[2020-06-12] MEDS: OXYCODONE HCL 5 MG TAB PO PRN ×2 (13:07→20:45)
[2020-06-12] MEDS: TRAMADOL HCL 50 MG TABLET PO PRN (16:52)
[2020-06-12] MEDS: ASPIRIN 81MG TAB.CHEW PO SCH (20:43)
[2020-06-12] MEDS: EZETIMIBE 10 MG TAB PO SCH (20:43)
[2020-06-12] MEDS: PREGABALIN 25 MG CAP PO SCH (20:43)
[2020-06-12] MEDS: CELECOXIB 200 MG CAP PO SCH (20:43)
[2020-06-12] MEDS: ATORVASTATIN CALCIUM 40 MG TABLET PO SCH (20:44)
[2020-06-12] MEDS: ISOSORBIDE MONO 60 MG TAB.SR PO SCH (20:44)
[2020-06-12] MEDS ORDERED: ROSUVASTATIN CALCIUM 40 MG PO SCH (21:00)
[2020-06-13] VITALS (7 sets, daily range): BP systolic 109–159; BP diastolic 56–74
[2020-06-13] MEDS: RANOLAZINE 500 MG TAB.SR.12H PO SCH ×3 (00:12→20:19)
[2020-06-13] MEDS: CEFAZOLIN SODIUM 1 GM VIAL IVP SCH (00:12)
[2020-06-13] MEDS: ACETAMINOPHEN EXTRA STRENGTH 500 MG TABLET PO SCH ×3 (04:15→17:52)
[2020-06-13 06:12] LABS: HEMATOCRIT 32.7 % (42-54); MEAN CORPUSCULAR HEMOGLOBIN 30.6 pg (27.0-33.0); MEAN CORPUSCULAR VOLUME 92.6 fL (79-99); RED BLOOD CELL COUNT(AUTO) 3.53 MIL/uL (4.50-6.20); RED CELL DISTRIBUTION WIDTH 13.9 % (11.0-15.5); WHITE BLOOD COUNT (AUTO) 9.4 K/uL (4.8-10.8)
[2020-06-13 06:28] LABS: CREATININE 1.6 mg/dL (0.5-1.5); POTASSIUM 4.1 mmol/L (3.5-5.1)
[2020-06-13] MEDS: SODIUM CHLORIDE 0.9% 1000ML 1,000 ML IV SCH (06:30)
[2020-06-13] MEDS: INSULIN HUMULIN R 100 UNIT/ML 3ML SQ SCH ×4 (07:27→20:23)
[2020-06-13] MEDS: OXYCODONE HCL 5 MG TAB PO PRN ×3 (08:02→20:30)
[2020-06-13] MEDS: INSULIN GLARGINE 100 UNITS/ML 10 ML VIAL SQ SCH (08:05)
[2020-06-13] MEDS: INVOKANA 300 MG PO SCH (09:00)
[2020-06-13] MEDS ORDERED: NON-FORMULARY MEDICATION 1 EACH (Oxybutynin Chloride (Oxybutynin Chloride ER) 10 MG) PO SCH (09:00)
[2020-06-13] MEDS ORDERED: NON-FORMULARY MEDICATION 1 EACH (Glipizide 10 MG) PO SCH (09:00)
[2020-06-13] MEDS ORDERED: NON-FORMULARY MEDICATION 1 EACH (Losartan Potassium 25 MG) PO SCH (09:00)
[2020-06-13] MEDS: CANAGLIFLOZIN PO SCH (09:00)
[2020-06-13] MEDS: TAMSULOSIN HCL 0.4 MG CAP.ER.24H PO SCH (10:31)
[2020-06-13] MEDS: ASPIRIN 81MG TAB.CHEW PO SCH ×2 (10:31→20:19)
[2020-06-13] MEDS: GLIPIZIDE 5 MG TABLET PO SCH (10:31)
[2020-06-13] MEDS: PIOGLITAZONE HCL 30 MG TAB PO SCH (10:31)
[2020-06-13] MEDS: LOSARTAN 50 MG TABLET PO SCH (10:32)
[2020-06-13] MEDS: OXYBUTYNIN 5 MG TAB.SR.24H PO SCH (10:32)
[2020-06-13] MEDS: FUROSEMIDE 20 MG TABLET PO SCH (10:32)
[2020-06-13] MEDS: CELECOXIB 200 MG CAP PO SCH ×2 (10:33→20:19)
[2020-06-13] MEDS: PREGABALIN 25 MG CAP PO SCH ×2 (10:33→20:18)
[2020-06-13] MEDS: POLYETHYLENE GLYCOL 3350 17 GM POWD.PACK PO SCH (10:35)
[2020-06-13] MEDS: PANTOPRAZOLE SODIUM 40 MG TABLET.DR PO SCH (10:46)
[2020-06-13] MEDS: TRAMADOL HCL 50 MG TABLET PO PRN ×2 (10:48→17:54)
[2020-06-13] MEDS: ATORVASTATIN CALCIUM 40 MG TABLET PO SCH (20:19)
[2020-06-13] MEDS: EZETIMIBE 10 MG TAB PO SCH (20:19)
[2020-06-13] MEDS: ISOSORBIDE MONO 60 MG TAB.SR PO SCH (20:19)
[2020-06-14] MEDS: OXYCODONE HCL 5 MG TAB PO PRN ×3 (02:57→15:43)
[2020-06-14] MEDS: ACETAMINOPHEN EXTRA STRENGTH 500 MG TABLET PO SCH ×2 (03:00→11:21)
[2020-06-14 03:53] VITALS: BP 130/71
[2020-06-14] MEDS: INSULIN GLARGINE 100 UNITS/ML 10 ML VIAL SQ SCH (06:22)
[2020-06-14] MEDS: INSULIN HUMULIN R 100 UNIT/ML 3ML SQ SCH ×2 (06:23→11:40)
[2020-06-14] MEDS: TRAMADOL HCL 50 MG TABLET PO PRN (06:34)
[2020-06-14 08:00] VITALS: BP 148/65
[2020-06-14] MEDS: INVOKANA 300 MG PO SCH (09:00)
[2020-06-14] MEDS: CANAGLIFLOZIN PO SCH (09:00)
[2020-06-14] MEDS: TAMSULOSIN HCL 0.4 MG CAP.ER.24H PO SCH (09:02)
[2020-06-14] MEDS: ASPIRIN 81MG TAB.CHEW PO SCH (09:02)
[2020-06-14] MEDS: FUROSEMIDE 20 MG TABLET PO SCH (09:03)
[2020-06-14] MEDS: CELECOXIB 200 MG CAP PO SCH (09:03)
[2020-06-14] MEDS: GLIPIZIDE 5 MG TABLET PO SCH (09:03)
[2020-06-14] MEDS: OXYBUTYNIN 5 MG TAB.SR.24H PO SCH (09:03)
[2020-06-14] MEDS: RANOLAZINE 500 MG TAB.SR.12H PO SCH (09:03)
[2020-06-14] MEDS: PANTOPRAZOLE SODIUM 40 MG TABLET.DR PO SCH (09:03)
[2020-06-14] MEDS: POLYETHYLENE GLYCOL 3350 17 GM POWD.PACK PO SCH (09:03)
[2020-06-14] MEDS: PREGABALIN 25 MG CAP PO SCH (09:04)
[2020-06-14] MEDS: LOSARTAN 50 MG TABLET PO SCH (09:04)
[2020-06-14] MEDS: PIOGLITAZONE HCL 30 MG TAB PO SCH (09:05)
[2020-06-14] MEDS ORDERED: MAGNESIUM CITRATE 296 ML SOLUTION PO SCH (11:15)
[2020-06-14] MEDS ORDERED: HYDR-4060 PO (11:22)
[2020-06-14] MEDS ORDERED: ASPI-1005 PO (11:22)
[2020-06-14 12:00] VITALS: BP 130/64
[2020-06-15] MEDS ORDERED: BISACODYL 10 MG SUPP.RECT RC PRN (10:30)
== END 2020-06-14 16:00 | disposition home health service (06) ==
LOC: EDSTATUS 09:00 → DAHIP 06-12 06:00 → EDSTATUS 06-12 09:00 → 3AH 06-12 11:54
PROVIDERS: ADMIT Orthopaedic Surgery; ATTEND Orthopaedic Surgery
DX: M17.11 Unilateral primary osteoarthritis, right knee (principal); Z20.828 Contact with and (suspected) exposure to other viral communicable diseases; I25.10 Atherosclerotic heart disease of native coronary artery without angina pectoris; E11.9 Type 2 diabetes mellitus without complications; E78.5 Hyperlipidemia, unspecified; I10 Essential (primary) hypertension; D62 Acute posthemorrhagic anemia; K59.00 Constipation, unspecified; Z87.891 Personal history of nicotine dependence; Z96.652 Presence of left artificial knee joint; Z79.4 Long term (current) use of insulin; Z79.899 Other long term (current) drug therapy
CPT/HCPCS: 27447; 36415 ×2; 80048 ×2; 81001; 82948 ×10; 85025; 85027; 85610; 87641; 88305; 88311; 96361 ×2; 96374; 96376; 97039 ×5; 97116 ×4; 97161; 97530 ×4; A4215; A4221; A4222; A4223; A4649 ×3; A4663; A4930; A9272; C1776; G0378 ×51; G8978; G8979; G8980; G8981; G8982; G8983; J0330; J0690 ×4; J1815 ×2; J2001; J2175; J2250; J2704; J2710; J2795; J3010; J3490 ×4; J7030; J7120; U0003

== ENCOUNTER 2020-06-17 01:46 | Emergency (ER) | payer OTHER ==
[~2020-06-17 01:46] MED LIST changes: +ASPI-1005 PO; +HYDR-4060 PO
[2020-06-17] MEDS ORDERED: HYDROMORPHONE HCL 0.5 MG/0.5 ML ML ONE ×2 (02:31→05:57)
[2020-06-17] MEDS ORDERED: ONDANSETRON HCL 4 MG/2 ML VIAL ONE (02:31)
[2020-06-17 02:42] LABS: BASOPHILS % (AUTO) 0.5 % (0.0-5.0); EOSINOPHILS % (AUTO) 1.5 % (0.0-8.0); HEMATOCRIT 32.4 % (42-54); LYMPHOCYTES % (AUTO) 16.5 % (21.0-51.0); MEAN CORPUSCULAR HEMOGLOBIN 30.8 pg (27.0-33.0); MEAN CORPUSCULAR VOLUME 93.4 fL (79-99); MONOCYTES % (AUTO) 8.8 % (3.0-13.0); PLATELET COUNT (AUTO) 203 K/uL (130-400); RED BLOOD CELL COUNT(AUTO) 3.47 MIL/uL (4.50-6.20); RED CELL DISTRIBUTION WIDTH 13.5 % (11.0-15.5); WHITE BLOOD COUNT (AUTO) 8.4 K/uL (4.8-10.8)
[2020-06-17 02:53] LABS: CREATININE 1.9 mg/dL (0.5-1.5); POTASSIUM 4.4 mmol/L (3.5-5.1)
[2020-06-17 02:55] LABS: INR 0.91 (0.85-1.15); PARTIAL THROMBOPLASTIN TIME 27.7 SEC (26.3-35.5); PROTHROMBIN TIME 9.9 SEC (9.6-11.6)
[2020-06-17 02:58] LABS: BILIRUBIN,TOTAL 1.1 mg/dL (0.2-1.0); TOTAL PROTEIN, SERUM 7.4 g/dL (6.0-8.3)
[2020-06-17] MEDS ORDERED: DiphenhydrAMINE HCL 50 MG/ML VIAL ONE (02:59)
[2020-06-17] MEDS ORDERED: KETOROLAC TROMETHAMINE 15MG/ML ONE (06:56)
[2020-06-17] MEDS ORDERED: PERCT PO (08:21)
== END 2020-06-17 08:03 | disposition home or self-care (01) ==
LOC: EDH 01:46
DX: G89.18 Other acute postprocedural pain (principal); M25.561 Pain in right knee; I10 Essential (primary) hypertension; E11.9 Type 2 diabetes mellitus without complications; I25.10 Atherosclerotic heart disease of native coronary artery without angina pectoris; I25.2 Old myocardial infarction; Z88.5 Allergy status to narcotic agent; Z79.02 Long term (current) use of antithrombotics/antiplatelets; Z96.651 Presence of right artificial knee joint; Z95.1 Presence of aortocoronary bypass graft
CPT/HCPCS: 36415; 73562; 73590; 80053; 85025; 85610; 85730; 87040; 93971; 96374; 96375; 96376; 99285; J1170 ×2; J1200; J1885; J2405

== ENCOUNTER → 2020-12-31 | Outpatient (CLI) | payer OTHER ==
[~2020-12-31] MED LIST changes: -ISOS60TA4 PO; +ISOS60TA77 PO; +PERCT PO
== END | disposition home or self-care (01) ==
LOC: OIH 10:01
PROVIDERS: ATTEND Family Medicine
DX: M25.861 Other specified joint disorders, right knee (principal); M24.811 Other specific joint derangements of right shoulder, not elsewhere classified; Z96.651 Presence of right artificial knee joint
CPT/HCPCS: 73030; 73562

== ENCOUNTER 2021-01-16 14:11 | Emergency (ER) | payer OTHER ==
[~2021-01-16] VITALS: Ht 167.6 cm; Wt 127.0 kg
[2021-01-16] MEDS ORDERED: DICYCLOMINE 20MG (10MG/ML) AMP IM ONE ×2 (16:00→18:16)
[2021-01-16] MEDS ORDERED: FAMOTIDINE 20MG VIAL IV ONE ×2 (16:00→18:17)
[2021-01-16] MEDS ORDERED: ONDANSETRON 4MG INJ IVP ONE (16:00)
[2021-01-16] MEDS ORDERED: KETOROLAC 15MG/ML VIAL (15MG/ML) IV ONE (16:00)
[2021-01-16] MEDS ORDERED: MAG/ALUM/SIMETH 30 ML UDCUP PO ONE (16:00)
[2021-01-16] MEDS ORDERED: 0.9%NACL 1000ML 1,000 ML IV ONE ×2 (16:00)
[2021-01-16 16:35] LABS: BASOPHILS % (AUTO) 0.3 % (0.0-5.0); EOSINOPHILS % (AUTO) 0.3 % (0.0-8.0); HEMATOCRIT 42.7 % (42-54); LYMPHOCYTES % (AUTO) 9.7 % (21.0-51.0); MEAN CORPUSCULAR HEMOGLOBIN 30.3 pg (27.0-33.0); MEAN CORPUSCULAR HGB CONC 32.6 g/dL (32.0-36.0); MONOCYTES % (AUTO) 8.3 % (3.0-13.0); PLATELET COUNT (AUTO) 159 K/uL (130-400); RED BLOOD CELL COUNT(AUTO) 4.59 MIL/uL (4.50-6.20); RED CELL DISTRIBUTION WIDTH 13.6 % (11.0-15.5); WHITE BLOOD COUNT (AUTO) 7.2 K/uL (4.8-10.8)
[2021-01-16 16:46] LABS: CARBON DIOXIDE 28 mmol/L (21-32); CHLORIDE 105 mmol/L (101-111); CREATININE 1.8 mg/dL (0.5-1.5); GLOMERULAR FILTR. RATE CALC 40 mL/min (>60); GLUCOSE,RANDOM 140 mg/dL (70-105); SODIUM SERUM 141 mmol/L (136-145); UREA NITROGEN, BLOOD 21 mg/dL (7-18)
[2021-01-16 16:50] LABS: ALANINE AMINOTRANSFERASE 20 U/L (12-78); ALBUMIN 3.6 g/dL (3.5-5.0); ASPARTATE AMINOTRANSFERASE 16 U/L (10-37); BILIRUBIN,TOTAL 0.9 mg/dL (0.2-1.0)
[2021-01-16 16:51] LABS: LIPASE < 50 U/L (114-286)
[2021-01-16 16:56] VITALS: BP 112/64
[2021-01-16] MEDS ORDERED: KETOROLAC 15MG/ML VIAL (15MG/ML) ONE (18:16)
[2021-01-16] MEDS ORDERED: ONDANSETRON 4MG INJ ONE (18:16)
[2021-01-16] MEDS ORDERED: MAG/ALUM/SIMETH 30 ML UDCUP ONE (18:16)
[2021-01-16 18:21] LABS: APPEARANCE,URINE Clear (CLEAR); BILIRUBIN,URINE Negative (NEGATIVE); COLOR,URINE Yellow (YELLOW); GLUCOSE, URINE (UA) Negative (NEGATIVE); KETONES,URINE Negative (NEGATIVE); LEUKOCYTE ESTERASE ,URINE Trace (NEGATIVE); NITRATE,URINE Negative (NEGATIVE); OCCULT BLOOD,URINE Negative (NEGATIVE); PROTEIN,URINE Trace mg/dL (NEGATIVE)
[2021-01-16 18:31] LABS: BACTERIA,URINE None Seen /HPF (None Seen); RBC,URINE None Seen /HPF (0-1); SQUAMOUS EPITHELIAL CELL,UR Rare /HPF (0-2); WBC,URINE 0-1 /HPF (0-1)
[2021-01-16] MEDS ORDERED: FAMO20TA8 PO (19:05)
[2021-01-16] MEDS ORDERED: ONDA4TAB10 PO (19:05)
[2021-01-16] MEDS ORDERED: DICY20TA2 PO (19:05)
== END 2021-01-16 19:39 | disposition home or self-care (01) ==
LOC: EDH 14:11
DX: R10.84 Generalized abdominal pain (principal); R11.2 Nausea with vomiting, unspecified; R19.7 Diarrhea, unspecified; I10 Essential (primary) hypertension; E78.00 Pure hypercholesterolemia, unspecified; E10.9 Type 1 diabetes mellitus without complications; Z79.899 Other long term (current) drug therapy
CPT/HCPCS: 36415; 74176; 80053; 81001; 83690; 85025; 96361; 96372; 96374; 96375; 99285; J0500; J1885; J2405; J3490; J7030

== ENCOUNTER 2021-06-04 06:29 | Observation (INO) | payer OTHER ==
[2021-06-02 09:30] VITALS: BP 134/68
[2021-06-02 10:00] LABS: APPEARANCE,URINE Clear (CLEAR); BILIRUBIN,URINE Negative (NEGATIVE); COLOR,URINE Yellow (YELLOW); GLUCOSE, URINE (UA) >=1000 mg/dL (NEGATIVE); KETONES,URINE Negative (NEGATIVE); LEUKOCYTE ESTERASE ,URINE Negative (NEGATIVE); NITRATE,URINE Negative (NEGATIVE); OCCULT BLOOD,URINE Negative (NEGATIVE); PROTEIN,URINE Negative (NEGATIVE)
[2021-06-02 10:07] LABS: BACTERIA,URINE Rare /HPF (None Seen); RBC,URINE 0-1 /HPF (0-1); SQUAMOUS EPITHELIAL CELL,UR Rare /HPF (0-2); WBC,URINE 0-1 /HPF (0-1)
[2021-06-04] VITALS (27 sets, daily range): BP systolic 110–138; BP diastolic 54–75
[~2021-06-04] VITALS: Ht 167.6 cm; Wt 113.4 kg
[2021-06-04] MEDS: CEFAZOLIN SODIUM 1 GM VIAL IVP SCH ×3 (06:00→17:11)
[~2021-06-04 06:29] MED LIST changes: +AEC81 PO; -ASPI-1005 PO; -CANA300T PO; +CARV12.511 PO; +CLOP75TA14 PO; +DAPA10TA PO; -HYDR-4060 PO; -ISOS60TA77 PO; -NITR0.4T50 SL; -PERCT PO; -RANO500T2 PO; +RANO500T3 PO; -TAMS-1 PO
[2021-06-04] MEDS ORDERED: ROPIVACAINE 0.5% 5MG/ML 30ML IJ ONE (06:43)
[2021-06-04] MEDS ORDERED: ROCURONIUM 10MG/1ML SYR 10 MG/ML ML ONE (07:12)
[2021-06-04] MEDS ORDERED: ONDANSETRON 4MG INJ ONE (07:12)
[2021-06-04] MEDS ORDERED: NEOSTIGMINE 5MG/5ML SYR IV ONE (07:12)
[2021-06-04] MEDS ORDERED: DEXAMETHASONE SOD PHOSPHATE 10MG/ML 1ML VIAL ONE (07:12)
[2021-06-04] MEDS ORDERED: LIDOCAINE PF 100MG/5ML (2%) SYRINGE 5ML ONE (07:12)
[2021-06-04] MEDS ORDERED: SUCCINYLCHOLINE 200MG/10ML SYR ONE (07:12)
[2021-06-04] MEDS ORDERED: GLYCOPYRROLATE 1 MG/5 ML SYRINGE ONE (07:12)
[2021-06-04] MEDS ORDERED: MIDAZOLAM HCL 1 MG/ML 2ML VIAL ONE (07:12)
[2021-06-04] MEDS ORDERED: PROPOFOL 10 MG/ML 20ML VIAL IV ONE (07:12)
[2021-06-04] MEDS ORDERED: FENTANYL CITRATE PF 50 MCG/1 ML 2ML VIAL ONE (07:21)
[2021-06-04] MEDS ORDERED: 0.9%NACL 1000ML 1,000 ML IV ONE (07:31)
[2021-06-04] MEDS ORDERED: CEFAZOLIN SODIUM 1 GM VIAL ONE (07:58)
[2021-06-04] MEDS ORDERED: TRANEXAMIC ACID 1000MG/10ML ONE (07:58)
[2021-06-04] MEDS ORDERED: VANCOMYCIN 2GM/500ML NS IV SCH ×2 (08:00)
[2021-06-04] MEDS ORDERED: ACETAMINOPHEN 500 MG TABLET ONE (08:11)
[2021-06-04] MEDS ORDERED: CELECOXIB 200 MG CAP ONE (08:11)
[2021-06-04] MEDS ORDERED: CEFAZOLIN SODIUM 1 GM VIAL IRRIG ONE (09:30)
[2021-06-04] MEDS ORDERED: EPHEDRINE SULFATE 50 MG/ML AMPULE ONE (10:21)
[2021-06-04] MEDS ORDERED: PHENYLEPHRINE HCL 10 MG/ML 1ML VIAL IV ONE (11:14)
[2021-06-04] MEDS ORDERED: VANCOMYCIN PROTOCOL PER PHARMACY IV SCH (12:00)
[2021-06-04] MEDS ORDERED: DiphenhydrAMINE HCL 50 MG/ML VIAL IVP PRN (12:00)
[2021-06-04] MEDS ORDERED: FE FUMARATE/FA/MV, MIN COMB#15 1 TAB PO PRN (12:00)
[2021-06-04] MEDS ORDERED: KCL 20 MEQ ERTAB PO PRN (12:00)
[2021-06-04] MEDS: 0.9%NACL 1000ML 1,000 ML IV SCH ×2 (12:00→22:02)
[2021-06-04] MEDS ORDERED: POTASSIUM CHLORIDE 10% ELIXIR 20 MEQ/15 ML UDCUP PO PRN (12:00)
[2021-06-04] MEDS: ACETAMINOPHEN 500 MG TABLET PO SCH ×2 (12:00→19:57)
[2021-06-04] MEDS ORDERED: ONDANSETRON 4MG INJ IVP PRN (12:00)
[2021-06-04] MEDS ORDERED: OXYCODONE HCL 5 MG TAB PO PRN (12:00)
[2021-06-04] MEDS ORDERED: KETOROLAC 15MG/ML VIAL (15MG/ML) IV PRN (12:00)
[2021-06-04] MEDS ORDERED: TRAMADOL HCL 50 MG TABLET PO PRN (12:00)
[2021-06-04] MEDS ORDERED: TEMAZEPAM 15 MG CAPSULE PO PRN (12:00)
[2021-06-04] MEDS ORDERED: LIDOCAINE HCL-MPF 1% 2ML VIAL IV PRN (12:00)
[2021-06-04] MEDS ORDERED: 0.9% NACL 250ML IV SCH (12:00)
[2021-06-04] MEDS ORDERED: POTASSIUM CHLORIDE 20MEQ/100ML 100 ML IV PRN (12:00)
[2021-06-04] MEDS ORDERED: CALCIUM CARB 500MG PO PRN (12:00)
[2021-06-04] MEDS ORDERED: COMPOUND IV REFRIGERATED 1 EACH IVSOLN MISC PRN (16:00)
[2021-06-04] MEDS: INSULIN HUMULIN R 100 UNIT/ML 3ML SQ SCH ×2 (16:30→20:43)
[2021-06-04] MEDS: FAMOTIDINE 20MG TAB PO SCH (19:56)
[2021-06-04] MEDS: PREGABALIN 25 MG CAP PO SCH (19:57)
[2021-06-04] MEDS: CELECOXIB 200 MG CAP PO SCH (19:57)
[2021-06-04] MEDS ORDERED: EZET10TA13 PO (21:59)
[2021-06-05] MEDS: CEFAZOLIN SODIUM 1 GM VIAL IVP SCH (00:03)
[2021-06-05] MEDS: OXYCODONE HCL 5 MG TAB PO PRN ×3 (04:03→16:22)
[2021-06-05] MEDS: ACETAMINOPHEN 500 MG TABLET PO SCH ×3 (04:03→19:45)
[2021-06-05 04:12] VITALS: BP 113/60
[2021-06-05 05:07] LABS: HEMATOCRIT 34.8 % (42-54); MEAN CORPUSCULAR HEMOGLOBIN 30.5 pg (27.0-33.0); MEAN CORPUSCULAR VOLUME 92.3 fL (79-99); RED BLOOD CELL COUNT(AUTO) 3.77 MIL/uL (4.50-6.20); RED CELL DISTRIBUTION WIDTH 12.7 % (11.0-15.5); WHITE BLOOD COUNT (AUTO) 10.1 K/uL (4.8-10.8)
[2021-06-05 05:29] LABS: CREATININE 1.8 mg/dL (0.5-1.5)
[2021-06-05] MEDS ORDERED: VANCOMYCIN 1.5GM/NS 250ML IV SCH ×2 (06:00)
[2021-06-05] MEDS: INSULIN HUMULIN R 100 UNIT/ML 3ML SQ SCH ×4 (06:11→19:49)
[2021-06-05] MEDS: INSULIN GLARGINE 100 UNITS/ML 10 ML VIAL SQ SCH (06:27)
[2021-06-05 07:00] VITALS: BP 123/60
[2021-06-05] MEDS: TAMSULOSIN HCL 0.4 MG CAP.ER.24H PO SCH (08:35)
[2021-06-05] MEDS: OXYBUTYNIN 5 MG TAB.SR.24H PO SCH (08:35)
[2021-06-05] MEDS: PREGABALIN 25 MG CAP PO SCH ×2 (08:35→19:46)
[2021-06-05] MEDS: POLYETHYLENE GLYCOL 3350 17 GM POWD.PACK PO SCH (08:35)
[2021-06-05] MEDS: CELECOXIB 200 MG CAP PO SCH ×2 (08:36→19:45)
[2021-06-05] MEDS: LOSARTAN 25 MG TABLET PO SCH (08:36)
[2021-06-05] MEDS: GLIPIZIDE 5 MG TABLET PO SCH (08:36)
[2021-06-05] MEDS: PIOGLITAZONE 30MG TAB PO SCH (08:37)
[2021-06-05] MEDS: FUROSEMIDE 20 MG TABLET PO SCH (08:37)
[2021-06-05] MEDS: PANTOPRAZOLE 40 MG TAB DR PO SCH (08:37)
[2021-06-05] MEDS: RANOLAZINE 500 MG TAB.SR.12H PO SCH ×2 (08:38→19:46)
[2021-06-05] MEDS: CARVEDILOL 12.5 MG TABLET PO SCH ×2 (08:38→19:47)
[2021-06-05] MEDS: FAMOTIDINE 20MG TAB PO SCH ×2 (08:38→19:47)
[2021-06-05] MEDS: **HM** FARXIGA 10MG PO SCH (08:49)
[2021-06-05] MEDS: EZETIMIBE 10 MG TAB PO SCH (09:52)
[2021-06-05] MEDS: ASPIRIN 81 MG EC TAB PO SCH (09:52)
[2021-06-05] MEDS: CLOPIDOGREL 75MG TAB PO SCH (09:52)
[2021-06-05] MEDS ORDERED: KETOROLAC 30MG VIAL (30MG/ML) ONE (10:09)
[2021-06-05 11:00] VITALS: BP 131/60
[2021-06-05] MEDS ORDERED: 0.9% NACL 500ML IV.SOLN 500 ML IV ONE (11:00)
[2021-06-05] MEDS: DOXYCYCLINE HYCLATE 100 MG TABLET PO SCH ×2 (13:33→19:48)
[2021-06-05 15:53] VITALS: BP 106/49
[2021-06-05 19:14] VITALS: BP 123/56
[2021-06-05] MEDS ORDERED: ATORVASTATIN 40 MG TABLET PO SCH (21:00)
[2021-06-05 23:23] VITALS: BP 99/49
[2021-06-06] MEDS: ACETAMINOPHEN 500 MG TABLET PO SCH (04:02)
[2021-06-06 04:15] VITALS: BP 104/61
[2021-06-06] MEDS: OXYCODONE HCL 5 MG TAB PO PRN (05:56)
[2021-06-06] MEDS: INSULIN HUMULIN R 100 UNIT/ML 3ML SQ SCH ×2 (05:57→11:55)
[2021-06-06] MEDS: INSULIN GLARGINE 100 UNITS/ML 10 ML VIAL SQ SCH (06:44)
[2021-06-06] MEDS: POLYETHYLENE GLYCOL 3350 17 GM POWD.PACK PO SCH (07:57)
[2021-06-06] MEDS: CELECOXIB 200 MG CAP PO SCH (07:57)
[2021-06-06] MEDS: OXYBUTYNIN 5 MG TAB.SR.24H PO SCH (07:58)
[2021-06-06] MEDS: GLIPIZIDE 5 MG TABLET PO SCH (07:58)
[2021-06-06] MEDS: FAMOTIDINE 20MG TAB PO SCH (07:59)
[2021-06-06] MEDS: RANOLAZINE 500 MG TAB.SR.12H PO SCH (07:59)
[2021-06-06] MEDS: EZETIMIBE 10 MG TAB PO SCH (07:59)
[2021-06-06] MEDS: DOXYCYCLINE HYCLATE 100 MG TABLET PO SCH (07:59)
[2021-06-06] MEDS: PREGABALIN 25 MG CAP PO SCH (07:59)
[2021-06-06] MEDS: PANTOPRAZOLE 40 MG TAB DR PO SCH (07:59)
[2021-06-06] MEDS: TAMSULOSIN HCL 0.4 MG CAP.ER.24H PO SCH (08:00)
[2021-06-06] MEDS: ASPIRIN 81 MG EC TAB PO SCH (08:01)
[2021-06-06] MEDS: FUROSEMIDE 20 MG TABLET PO SCH (08:01)
[2021-06-06] MEDS: CARVEDILOL 12.5 MG TABLET PO SCH (08:02)
[2021-06-06] MEDS: LOSARTAN 25 MG TABLET PO SCH (08:02)
[2021-06-06] MEDS: PIOGLITAZONE 30MG TAB PO SCH (08:02)
[2021-06-06 08:07] VITALS: BP 110/59
[2021-06-06] MEDS: **HM** FARXIGA 10MG PO SCH (08:19)
[2021-06-06] MEDS: CLOPIDOGREL 75MG TAB PO SCH (08:19)
[2021-06-06] MEDS ORDERED: HYDR-4060 PO (10:42)
[2021-06-06 11:18] VITALS: BP 91/48
[2021-06-06] MEDS ORDERED: ACETAMINOPHEN 500 MG TABLET PO SCH (14:00)
[2021-06-07] MEDS ORDERED: BISACODYL 10 MG SUPP.RECT RC PRN (12:00)
== END 2021-06-06 17:23 | disposition home health service (06) ==
LOC: DAH 06:29 → DAHIP 06:30 → DAH 06:30 → 4BH 12:46
PROVIDERS: ADMIT Orthopaedic Surgery; ATTEND Orthopaedic Surgery
DX: M19.011 Primary osteoarthritis, right shoulder (principal); Z20.822 Contact with and (suspected) exposure to COVID-19; S43.006A Unspecified dislocation of unspecified shoulder joint, initial encounter; M19.111 Post-traumatic osteoarthritis, right shoulder; M25.511 Pain in right shoulder; G89.29 Other chronic pain; I10 Essential (primary) hypertension; E11.9 Type 2 diabetes mellitus without complications; E78.5 Hyperlipidemia, unspecified; I25.10 Atherosclerotic heart disease of native coronary artery without angina pectoris; Z79.4 Long term (current) use of insulin; Z79.899 Other long term (current) drug therapy; Z98.890 Other specified postprocedural states; Z96.653 Presence of artificial knee joint, bilateral; X58.XXXA Exposure to other specified factors, initial encounter; Y92.89 Other specified places as the place of occurrence of the external cause; Y93.89 Activity, other specified; Y99.8 Other external cause status
CPT/HCPCS: 23472; 36415; 73030; 80048; 81001; 82948 ×9; 85027; 87077; 87088; 87186; 87635; 87641; 96374; 96375; 96376; 97039; 97116 ×2; 97161; 97530 ×3; A4215; A4221; A4222; A4223; A4565; A4600; A4649 ×3; A4663; A4930 ×2; A6206; C1776; C9803; G0168; G0378 ×50; J0330; J0690 ×5; J1100; J1815 ×4; J1885; J2001; J2250; J2370; J2405; J2704; J2710; J2795; J3010; J3370 ×2; J3490 ×2; J7030 ×2; J7040; J7050

== ENCOUNTER 2021-10-28 07:36 | Emergency (ER) | payer OTHER ==
[~2021-10-28] VITALS: Ht 167.6 cm; Wt 116.1 kg
[~2021-10-28 07:36] MED LIST changes: +HYDR-4060 PO
[2021-10-28] MEDS ORDERED: ONDANSETRON 4MG INJ IVP ONE (08:00)
[2021-10-28 08:38] LABS: APPEARANCE,URINE CLEAR (CLEAR); BILIRUBIN,URINE NEGATIVE (NEGATIVE); COLOR,URINE YELLOW (YELLOW); GLUCOSE, URINE (UA) >=1000 mg/dL (NEGATIVE); KETONES,URINE 5 mg/dL (NEGATIVE); LEUKOCYTE ESTERASE ,URINE NEGATIVE (NEGATIVE); NITRATE,URINE NEGATIVE (NEGATIVE); OCCULT BLOOD,URINE NEGATIVE (NEGATIVE); PROTEIN,URINE NEGATIVE (NEGATIVE); UROBILINOGEN,URINE 0.2 mg/dL (0.2-1.0)
[2021-10-28 08:49] LABS: HEMATOCRIT 42.9 % (42-54); MEAN CORPUSCULAR HEMOGLOBIN 29.5 pg (27.0-33.0); MEAN CORPUSCULAR HGB CONC 31.9 g/dL (32.0-36.0); MEAN CORPUSCULAR VOLUME 92.3 fL (79-99); PLATELET COUNT (AUTO) 163 K/uL (130-400); RED BLOOD CELL COUNT(AUTO) 4.65 MIL/uL (4.50-6.20); RED CELL DISTRIBUTION WIDTH 13.7 % (11.0-15.5); WHITE BLOOD COUNT (AUTO) 8.4 K/uL (4.8-10.8)
[2021-10-28] MEDS ORDERED: 0.9% NACL 500ML IV.SOLN 500 ML IV SCH (09:00)
[2021-10-28 09:04] LABS: CREATININE 1.7 mg/dL (0.5-1.5); POTASSIUM 4.3 mmol/L (3.5-5.1)
[2021-10-28 09:05] LABS: BACTERIA,URINE Rare /HPF (None Seen); RBC,URINE None Seen /HPF (0-1); SQUAMOUS EPITHELIAL CELL,UR Rare /HPF (0-2); WBC,URINE 0-1 /HPF (0-1)
[2021-10-28 09:10] LABS: ALBUMIN 3.7 g/dL (3.5-5.0); BILIRUBIN,TOTAL 1.4 mg/dL (0.2-1.0); TOTAL PROTEIN, SERUM 7.8 g/dL (6.0-8.3)
[2021-10-28 09:16] LABS: MAGNESIUM 2.1 mg/dL (1.80-2.40)
[2021-10-28 09:35] LABS: BAND NEUTROPHILS % (MANUAL) 4 % (0-2); LYMPHOCYTES % (MANUAL) 4 % (22-44); MAN.DIFF COMMENT-IMPRESSION MANUAL DIFFERENTIAL; PLATELET MORPHOLOGY COMMENT ADEQUATE; SEGMENTED NEUTROPHILS % 92 % (40-70)
[2021-10-28] MEDS ORDERED: ONDA4TAB10 PO (11:21)
[2021-10-28 11:52] VITALS: BP 142/54
== END 2021-10-28 11:56 | disposition home or self-care (01) ==
LOC: EDH 07:36
DX: R11.2 Nausea with vomiting, unspecified (principal); R19.7 Diarrhea, unspecified; E86.0 Dehydration; E11.65 Type 2 diabetes mellitus with hyperglycemia; I12.9 Hypertensive chronic kidney disease with stage 1 through stage 4 chronic kidney disease, or unspecified chronic kidney disease; E11.22 Type 2 diabetes mellitus with diabetic chronic kidney disease; N18.9 Chronic kidney disease, unspecified; Z98.890 Other specified postprocedural states; Z79.899 Other long term (current) drug therapy; Z79.4 Long term (current) use of insulin; Z79.82 Long term (current) use of aspirin; Z79.84 Long term (current) use of oral hypoglycemic drugs
CPT/HCPCS: 36415; 80053; 81001; 82550; 83690; 83735; 84484; 85025; 93005; 96374; 99284; J2405

== ENCOUNTER → 2022-08-25 | Outpatient (CLI) | payer OTHER ==
[~2022-08-25] MED LIST changes: -AEC81 PO; +ASPI-1443 PO; -CLOP75TA14 PO; -DAPA10TA PO; -EZET10TA13 PO; +EZET10TA48 PO; -FURO20TA4 PO; +GABA-529 PO; -HYDR-4060 PO; +IOHEXOL 350 MG/ML 100ML INFUS..BTL IV ONE; +PANT40TA PO; -PANT40TA54 PO; -ROSU40 PO; +ROSU40TA21 PO; +TICA90TA PO
== END | disposition home or self-care (01) ==
LOC: RAH 10:01
PROVIDERS: ATTEND Family Medicine
DX: R19.04 Left lower quadrant abdominal swelling, mass and lump (principal); R19.01 Right upper quadrant abdominal swelling, mass and lump; Z90.49 Acquired absence of other specified parts of digestive tract
CPT/HCPCS: 74178; Q9967

== ENCOUNTER 2022-11-21 19:01 | Emergency (ER) | payer OTHER ==
[~2022-11-21] VITALS: Ht 167.6 cm; Wt 105.2 kg
[~2022-11-21 19:01] MED LIST changes: -IOHEXOL 350 MG/ML 100ML INFUS..BTL IV ONE
[2022-11-21] MEDS ORDERED: ONDANSETRON 4MG INJ IVP ONE (19:30)
[2022-11-21 19:37] LABS: BASOPHILS % (AUTO) 0.2 % (0.0-5.0); EOSINOPHILS % (AUTO) 0.3 % (0.0-8.0); HEMATOCRIT 42.8 % (42-54); LYMPHOCYTES % (AUTO) 4.8 % (21.0-51.0); MEAN CORPUSCULAR HEMOGLOBIN 31.3 pg (27.0-33.0); MEAN CORPUSCULAR HGB CONC 32.5 g/dL (32.0-36.0); MEAN CORPUSCULAR VOLUME 96.4 fL (79-99); MONOCYTES % (AUTO) 4.7 % (3.0-13.0); NEUTROPHILS % (AUTO) 89.7 % (40.0-77.0); PLATELET COUNT (AUTO) 177 K/uL (130-400); RED BLOOD CELL COUNT(AUTO) 4.44 MIL/uL (4.50-6.20); RED CELL DISTRIBUTION WIDTH 13.1 % (11.0-15.5); WHITE BLOOD COUNT (AUTO) 9.9 K/uL (4.8-10.8)
[2022-11-21 19:45] LABS: APPEARANCE,URINE CLEAR (CLEAR); BILIRUBIN,URINE NEGATIVE (NEGATIVE); COLOR,URINE YELLOW (YELLOW); GLUCOSE, URINE (UA) >=1000 mg/dL (NEGATIVE); KETONES,URINE 5 mg/dL (NEGATIVE); LEUKOCYTE ESTERASE ,URINE NEGATIVE Leu/uL (NEGATIVE); NITRATE,URINE NEGATIVE (NEGATIVE); OCCULT BLOOD,URINE NEGATIVE (NEGATIVE); PROTEIN,URINE TRACE mg/dL (NEGATIVE); UROBILINOGEN,URINE 0.2 mg/dL (0.2-1.0)
[2022-11-21 19:51] LABS: CREATININE 1.8 mg/dL (0.5-1.5); POTASSIUM 3.9 mmol/L (3.5-5.1)
[2022-11-21 19:54] LABS: ALBUMIN 4.3 g/dL (3.5-5.0)
[2022-11-21 19:55] LABS: BACTERIA,URINE None Seen /HPF (None Seen); RBC,URINE None Seen /HPF (0-1); WBC,URINE None Seen /HPF (0-1); YEAST,URINE BUDDING Rare /HPF (None Seen)
[2022-11-21 20:09] LABS: TOTAL PROTEIN, SERUM 8.5 g/dL (6.0-8.3)
[2022-11-21] MEDS ORDERED: 0.9% NACL 250ML 250 ML IV SCH (20:30)
[2022-11-21] MEDS ORDERED: 0.9%NACL 1000ML 250 ML IV SCH (20:30)
[2022-11-21] MEDS ORDERED: ONDA4TAB10 PO (22:23)
[2022-11-21 22:26] VITALS: BP 107/47
== END 2022-11-21 22:47 | disposition home or self-care (01) ==
LOC: EDH 19:01
DX: A05.9 Bacterial foodborne intoxication, unspecified (principal); R11.10 Vomiting, unspecified; R19.7 Diarrhea, unspecified; I10 Essential (primary) hypertension; E11.9 Type 2 diabetes mellitus without complications; E78.00 Pure hypercholesterolemia, unspecified; R60.0 Localized edema; Z79.82 Long term (current) use of aspirin; Z79.84 Long term (current) use of oral hypoglycemic drugs; Z79.899 Other long term (current) drug therapy; Z95.5 Presence of coronary angioplasty implant and graft; Z98.890 Other specified postprocedural states
CPT/HCPCS: 99285; 84484; 80053; 83880; 83690; 85025; 83605; 81001; 36415; 71045; 93971; 96374; 96361; 93005; J2405; J7050

== ENCOUNTER 2023-05-04 18:12 | Emergency (ER) | payer OTHER ==
[~2023-05-04] VITALS: Ht 167.6 cm; Wt 108.9 kg
[~2023-05-04 18:12] MED LIST changes: +ONDA4TAB10 PO
[2023-05-04 20:28] LABS: BASOPHILS # (AUTO) 0.03 K/uL (0.00-0.20); BASOPHILS % (AUTO) 0.2 % (0.0-5.0); EOSINOPHILS # (AUTO) 0.03 K/uL (0.00-0.70); EOSINOPHILS % (AUTO) 0.2 % (0.0-8.0); HEMATOCRIT 39.1 % (42-54); IMMATURE GRANULOCYTE ABSOLUTE 0.05 K/uL (0-1); LYMPHOCYTES % (AUTO) 6.5 % (21.0-51.0); MEAN CORPUSCULAR HEMOGLOBIN 31.5 pg (27.0-33.0); MEAN CORPUSCULAR HGB CONC 33.5 g/dL (32.0-36.0); MONOCYTES # (AUTO) 1.2 K/uL (0.1-1.0); MONOCYTES % (AUTO) 7.8 % (3.0-13.0); NEUTROPHILS # (AUTO) 12.5 K/uL (1.8-7.7); PLATELET COUNT (AUTO) 167 K/uL (130-400); RED BLOOD CELL COUNT(AUTO) 4.16 MIL/uL (4.50-6.20); RED CELL DISTRIBUTION WIDTH 13.1 % (11.0-15.5); WHITE BLOOD COUNT (AUTO) 14.8 K/uL (4.8-10.8)
[2023-05-04 20:35] LABS: APPEARANCE,URINE CLEAR (CLEAR); BILIRUBIN,URINE NEGATIVE (NEGATIVE); COLOR,URINE LIGHT-YELLOW (YELLOW); GLUCOSE, URINE (UA) >=1000 mg/dL (NEGATIVE); KETONES,URINE NEGATIVE (NEGATIVE); LEUKOCYTE ESTERASE ,URINE NEGATIVE Leu/uL (NEGATIVE); NITRATE,URINE NEGATIVE (NEGATIVE); OCCULT BLOOD,URINE NEGATIVE (NEGATIVE); PROTEIN,URINE NEGATIVE (NEGATIVE); UROBILINOGEN,URINE 0.2 mg/dL (0.2-1.0)
[2023-05-04 20:38] LABS: CREATININE 2.1 mg/dL (0.5-1.5); POTASSIUM 3.5 mmol/L (3.5-5.1)
[2023-05-04 20:39] LABS: ADD UA MICROSCOPIC YES
[2023-05-04 20:41] LABS: BACTERIA,URINE RARE /HPF (None Seen); MUCUS,URINE FEW LPF (None Seen); RBC,URINE 0-1 /HPF (0-1); SQUAMOUS EPITHELIAL CELL,UR RARE /HPF (0-2)
[2023-05-04 20:52] LABS: SARS-CoV-2, RNA, NAAT NEGATIVE SARS CoV-2 (NEGATIVE)
[2023-05-04 20:53] LABS: INFLUENZA TYPE A Negative For Type A (NEGATIVE); INFLUENZA TYPE B Negative For Type B (NEGATIVE)
[2023-05-04] MEDS ORDERED: CEFTRIAXONE 1G VIAL IVPB ONE ×2 (21:00→22:00)
[2023-05-04] MEDS ORDERED: LEVO-70 PO (21:41)
[2023-05-04] MEDS ORDERED: IBUP-1493 PO (21:42)
[2023-05-04] MEDS ORDERED: PHENAZOPYRIDINE HCL 200 MG TABLET PO ONE (22:00)
[2023-05-04] MEDS ORDERED: KETOROLAC 30MG VIAL (30MG/ML) IVP ONE (22:00)
[2023-05-04 22:10] VITALS: BP 132/51; PULSE 82; RESP 18; O2SAT 97
== END 2023-05-04 22:10 | disposition home or self-care (01) ==
LOC: EDH 18:12
DX: R30.0 Dysuria (principal); E11.9 Type 2 diabetes mellitus without complications; E78.00 Pure hypercholesterolemia, unspecified; I10 Essential (primary) hypertension; Z79.02 Long term (current) use of antithrombotics/antiplatelets; Z79.4 Long term (current) use of insulin; Z79.82 Long term (current) use of aspirin; Z79.84 Long term (current) use of oral hypoglycemic drugs; Z79.899 Other long term (current) drug therapy; Z95.1 Presence of aortocoronary bypass graft; Z95.5 Presence of coronary angioplasty implant and graft; Z20.822 Contact with and (suspected) exposure to COVID-19
CPT/HCPCS: 99285; 96374; 71045; 87635; 96375; 80048; 85025; 87040 ×2; 87804 ×2; 83605; 81001; 36415; 93005; C9803; J0696; J1885

== ENCOUNTER → 2024-04-05 | Outpatient (CLI) | payer OTHER ==
[~2024-04-05] MED LIST changes: +DICY10 PO; +IBUP-1493 PO; +LEVO-70 PO; +OMEP40CA21 PO; +ONDA-243 PO; -ONDA4TAB10 PO; +POLY17PO4 PO; -ROSU40TA21 PO; +ROSU40TA88 PO
== END | disposition home or self-care (01) ==
LOC: RAH 09:53
PROVIDERS: ATTEND Family Medicine
DX: M16.11 Unilateral primary osteoarthritis, right hip (principal); M25.551 Pain in right hip
CPT/HCPCS: 73502

== ENCOUNTER → 2024-12-16 | Emergency (ER) | payer OTHER ==
[~2024-12-16] VITALS: Ht 167.6 cm; Wt 98.4 kg
[~2024-12-16] MED LIST changes: -DICY10 PO; +FURO20TA6 PO; +GLIP10TA16 PO; -GLIP10TA9 PO; -IBUP-1493 PO; -LEVO-70 PO; -ONDA-243 PO; -OXYB10TA30 PO; -PANT40TA PO; -PIOG30TA70 PO; -POLY17PO4 PO; +RANO500T2 PO; -RANO500T3 PO; -ROSU40TA88 PO; +SULF1TAB42 PO; +TIRZ5PEN SQ
[2024-12-16 16:44] VITALS: TEMP 98.1
[2024-12-16 17:11] LABS: BASOPHILS # (AUTO) 0.02 K/uL (0.00-0.20); BASOPHILS % (AUTO) 0.3 % (0.0-5.0); EOSINOPHILS # (AUTO) 0.24 K/uL (0.00-0.70); EOSINOPHILS % (AUTO) 3.3 % (0.0-8.0); HEMATOCRIT 34.6 % (42-54); IMMATURE GRANULOCYTE ABSOLUTE 0.05 K/uL (0-1); LYMPHOCYTES # (AUTO) 1.1 K/uL (1.0-4.8); LYMPHOCYTES % (AUTO) 15.5 % (21.0-51.0); MEAN CORPUSCULAR HEMOGLOBIN 30.8 pg (27.0-33.0); MEAN CORPUSCULAR HGB CONC 33.8 g/dL (32.0-36.0); MEAN CORPUSCULAR VOLUME 91.1 fL (79-99); MONOCYTES # (AUTO) 0.4 K/uL (0.1-1.0); MONOCYTES % (AUTO) 5.8 % (3.0-13.0); NEUTROPHILS # (AUTO) 5.4 K/uL (1.8-7.7); NEUTROPHILS % (AUTO) 74.4 % (40.0-77.0); PLATELET COUNT (AUTO) 188 K/uL (130-400); RED CELL DISTRIBUTION WIDTH 12.6 % (11.0-15.5); WHITE BLOOD COUNT (AUTO) 7.2 K/uL (4.8-10.8)
[2024-12-16 17:18] LABS: CREATININE 1.9 mg/dL (0.5-1.3); POTASSIUM 4.5 mmol/L (3.5-5.1)
--- NOTE | 2024-12-16 17:55 | ERN ---
General Chief Complaint: LOWER EXTREMITY EDEMA Stated Complaint: RIGHT LEG EDEMA Time Seen by MD: 16:40 Source: patient History of Present Illness Initial Comments Patient is a 74-year-old male coming in to be evaluated for right lower extremity edema. Patient states that he has been having swelling of the right lower extremity as well as erythema. States that the presentation began one week ago. Allergies: Coded Allergies: No Known Drug Allergies (Verified Allergy, Unknown, 06/21/15) Home Meds Active Scripts Sulfamethoxazole/Trimethoprim (Bactrim Ds Tablet) 800 Mg-160 Mg Tablet, 1 TAB PO BID for 7 Days, #14 TAB 0 Refills Prov:PATIENCE WISE 05/31/24 Ticagrelor (Brilinta) 90 Mg Tablet, 90 MG PO BID for 30 Days, #60 TAB 2 Refills Prov:MARCUS BRUCE MD 12/13/21 Insulin Glargine,Hum.rec.anlog (Toujeo Max Solostar) 300 Unit/1 Ml Insuln.pen, 60 UNIT SQ DAILY, #1 SYRINGE 0 Refills Prov:MARCUS BRUCE MD 12/13/21 Reported Medications Tirzepatide (Mounjaro) 5 Mg/0.5 Ml Pen.injctr, 7 UNIT SQ QWEEK 05/29/24 Gabapentin (Gabapentin) 100 Mg Capsule, 100 MG PO HS, CAP 05/29/24 Omeprazole (Omeprazole) 40 Mg Capsule.dr, 40 MG PO ACBKFST, CAP 05/29/24 Furosemide (Lasix 20Mg Tab) 20 Mg Tablet, 20 MG PO DAILY, TAB 05/29/24 Ranolazine (RANEXA) 500 Mg Tab.er.12h, 500 MG PO BIDAC, TAB 05/29/24 Ezetimibe (Ezetimibe) 10 Mg Tablet, 10 MG PO DAILY, TAB 12/10/21 Losartan Potassium (Losartan Potassium) 25 Mg Tablet, 25 MG PO DAILY, TAB 12/10/21 Carvedilol (Carvedilol) 12.5 Mg Tablet, 12.5 MG PO BID, TAB 12/10/21 Glipizide (Glipizide) 10 Mg Tablet, 10 MG PO DAILY, TAB 12/10/21 Aspirin (Aspirin EC) 81 Mg Tablet.dr, 81 MG PO DAILY, TAB 12/10/21 Past Medical History Past Medical History: CHF, Diabetes-Type II, High Cholesterol, Heart Disease, Hypertension Medical History Other: MRSA Past Surgical History: CABG, Other Surgical History Other: bilateral knee sx, right shoulder sx Social History Social History: Negative, Lives with family ROS Dictation CONSTITUTIONAL: No chills, no fever, no weakness, no diaphoresis, no malaise. HEAD/FACE: No signs of trauma. EENT: No eye pain, no blurred vision, no tearing, no double vision, no ear pain, no ear discharge, no nose pain, no nasal congestion, no throat pain, no throat swelling, no mouth pain. RESPIRATORY: No cough, no orthopnea, no SOB, no stridor, no wheezing. CARDIOVASCULAR: No chest pain, no edema, no palpitations, no syncope. GASTROINTESTINAL/ABDOMINAL: No abdominal pain, no constipation, no diarrhea, no nausea, no vomiting. GENITOURINARY: No abnormal discharge, no dysuria, no frequent urination, no hematuria. No complaints of pain in the genitals. MUSCULOSKELETAL: No back pain, no gout, no joint pain, no joint swelling, no muscle pain, no muscle stiffness, no neck pain. INTEGUMENTARY: No change in color, no change in hair/nails, no dryness, no lesion, no lumps, no rash. NEUROLOGICAL/PSYCH: No anxiety, not depressed, no emotional problem, no headache, no numbness, no pre-existing deficit, no history of seizures, no tremors, no weakness. HEMATOLOGIC/LYMPHATIC: Not anemic, no history of blood clots, no apparent bl eeding, no bruising, glands not swollen. All Systems Negative, Except as Noted. Physical Exam Physical Exam Dictation VITAL SIGNS: Reviewed. GENERAL APPEARANCE: Alert, oriented x3, no acute distress, obese. HEAD AND FACE: Non-traumatic. EYES: PERRL, pink conjunctivas, eyelid no trauma, anterior chamber clear. EARS: Pinnas intact and no signs of trauma or erythema. Ear canals clear and no discharge. TMs no erythema. NOSE: No discharge, no bleeding. OROPHARYNX: Mouth normal, teeth no caries, tongue pink. Pharynx clear, no erythema. Tonsils no exudates, no abscesses noted. Mucous membrane moist. NECK: Supple, non-tender, no thyromegaly, no masses, no JVD, no bruits. BREAST: Deferred. CHEST: No tenderness, no crepitus, no paradoxical movement, no retractions. LUNGS: Clear, well-ventilated, symmetric, no rales, no wheezing, no rhonchi, no stridor, good breath sounds bilaterally. HEART: Regular rate, regular rhythm, no murmur, no gallops. VASCULAR: No peripheral edema. ABDOMEN: Soft, positive bowel sounds, nondistended, no guarding, nontender, no rebound, no masses no hepatomegaly, no splenomegaly, no Alonzo's sign, no hernias. RECTAL: Deferred. GENITAL: Deferred. NEUROLOGICAL: Normal speech, gross motor function intact, gross sensory function intact. MUSCULOSKELETAL: Neck nontender, full range of motion, back nontender, full ran ge of motion. EXTREMITIES: Nontender, full range of motion. SKIN: Color pink, dry, no turgor, no rash, no lacerations, no abrasions, no contusions. LYMPHATICS: Deferred. Results Laboratory and Microbiology Lab and Micro Result Laboratory Tests Test 12/16/24 17:00 White Blood Count 7.2 K/uL (4.8-10.8) Red Blood Count 3.80 MIL/uL (4.50-6.20) L Hemoglobin 11.7 g/dL (14.0-18.0) L Hematocrit 34.6 % (42-54) L Mean Corpuscular Volume 91.1 fL (79-99) Mean Corpuscular Hemoglobin 30.8 pg (27.0-33.0) Mean Corpuscular Hemoglobin Concent 33.8 g/dL (32.0-36.0) Red Cell Distribution Width 12.6 % (11.0-15.5) Platelet Count 188 K/uL (130-400) Mean Platelet Volume 9.9 fL (7.5-10.5) Immature Granulocyte % (Auto) 0.7 % (0-1) Neutrophils (%) (Auto) 74.4 % (40.0-77.0) Lymphocytes (%) (Auto) 15.5 % (21.0-51.0) L Monocytes (%) (Auto) 5.8 % (3.0-13.0) Eosinophils (%) (Auto) 3.3 % (0.0-8.0) Basophils (%) (Auto) 0.3 % (0.0-5.0) Neutrophils # (Auto) 5.4 K/uL (1.8-7.7) Lymphocytes # (Auto) 1.1 K/uL (1.0-4.8) Monocytes # (Auto) 0.4 K/uL (0.1-1.0) Eosinophils # (Auto) 0.24 K/uL (0.00-0.70) Basophils # (Auto) 0.02 K/uL (0.00-0.20) Absolute Immature Granulocyte (auto 0.05 K/uL (0-1) Nucleated Red Blood Cells 0.0 % (0.0-0.19) Sodium Level 138 mmol/L (136-145) Potassium Level 4.5 mmol/L (3.5-5.1) Chloride Level 107 mmol/L (101-111) Carbon Dioxide Level 26 mmol/L (21-32) Blood Urea Nitrogen 29 mg/dL (7-18) H Creatinine 1.9 mg/dL (0.5-1.3) H Glomerular Filtration Rate Calc 37 mL/min (>90) Random Glucose 268 mg/dL (70-105) H Total Calcium 8.6 mg/dL (8.5-10.1) Labs Reviewed?: Yes MDM MDM: Differential diagnosis: DVT, cellulitis, Rationale: Tests considered and ordered secondary to shared decision making include: Previous outside records reviewed: Old ER visits. Risk of complication and/or morbidity or mortality of patient management: None Medications-Per medication reconciliation Need for hospitalization: Patient does not meet criteria for hospitalization. Patient is a 74-year-old male coming in complaining of right lower extremity erythema. Ultrasound to be performed to rule out DVT. Laboratory workup and imaging starting pending Patient's ultrasound scan is negative for DVT. When I examined the patient's right leg the swelling was receding there were fine wrinkles throughout the areas of redness in his foot suggesting that the swelling has decreased suggesting that the antibiotics he is taking are working. Patient wanted to know what he could take for the pain. I offered to give him ibuprofen or Toradol but he said he could not take those because he is on naproxen already. I suggested that he take Tylenol. He is ready to go home. ED Course Orders Procedure Category Date Status Time Cbc With Differential LAB 12/16/24 Complete 16:43 Basic Metabolic Panel LAB 12/16/24 Complete 16:43 Us Venous Doppler US 12/16/24 Resulted Unilateral 16:43 Vital Signs Date Time Temp Pulse Resp B/P (MAP) Pulse Ox O2 Delivery O2 Flow Rate FiO2 12/16/24 19:21 74 20 114/62 100 Room Air* 0 21 12/16/24 16:44 98.1 82 20 120/77 100 Room Air* 0 21 12/16/24 16:42 98.1 82 20 120/77 100 Room Air 0 DX & DISP Disposition: Discharge Departure Impression: Primary Impression: Cellulitis Condition: Stable Additional Instructions: You have right lower leg cellulitis. No DVT. Keep the foot elevated whenever possible. Given that urine meloxicam already we can provide Tylenol for extra pain relief. The swelling in the foot is better so I think the infection is being treated adequately. If the redness starts to spread up your right thigh or you see red streaks going up her right thigh please come back to the emergency room. Referrals: SWAPNIL WAKEFIELD MD (PCP) EASTON COLE MD Dec 16, 2024 17:55 ARAM DAVIS MD Dec 16, 2024 19:49
--- NOTE | 2024-12-16 18:57 | HMCIMG ---
Exam Type: US VENOUS DOPPLER UNILATERAL Clinical Information: rigth lower extremity Comparison: None Findings: The examination shows normal deep venous system. There is normal compressibility at all levels. There is no intraluminal clot. There is no occlusion. Adequate response is obtained on augmentation. Impression: No evidence of DVT.
[2024-12-16 19:21] VITALS: BP 114/62; PULSE 74; RESP 20; O2SAT 100
== END ==
LOC: EDH 16:38
DX: L03.115 Cellulitis of right lower limb (principal); I11.0 Hypertensive heart disease with heart failure; I50.9 Heart failure, unspecified; E11.9 Type 2 diabetes mellitus without complications; E78.00 Pure hypercholesterolemia, unspecified; Z79.02 Long term (current) use of antithrombotics/antiplatelets; Z79.4 Long term (current) use of insulin; Z79.82 Long term (current) use of aspirin; Z79.84 Long term (current) use of oral hypoglycemic drugs; Z79.85 Long-term (current) use of injectable non-insulin antidiabetic drugs; Z79.899 Other long term (current) drug therapy; Z95.1 Presence of aortocoronary bypass graft; Z98.890 Other specified postprocedural states
CPT/HCPCS: 36415; 80048; 85025; 93971; 99284